=== PATIENT | male | born 1960 | race African-American/Black ===

== ENCOUNTER 2017-08-17 01:58 | Inpatient (IN) | payer OTHER, MEDICARE ==
[~2017-08-17] VITALS: Ht 193 cm; Wt 157.0 kg
--- NOTE | 2017-08-17 02:05 | ED DYSPNEA/ASTHMA COMPLAINT ---
History of Present Illness General Chief Complaint: Dyspnea (COPD, CHF, Other) Stated Complaint: BIBA FOR SOB Source: patient, EMS Exam Limitations: no limitations Vital Signs & Intake/Output Vital Signs & Intake/Output Vital Signs Date Time Temp Pulse Resp B/P B/P Pulse O2 O2 Flow FiO2 Mean Ox Delivery Rate 08/17 0958 98.6 90 20 160/72 98 Nasal 2.0L Cannula 08/17 0647 98.7 94 18 157/75 98 08/17 0227 100 Nasal Cannula 08/17 0210 98.7 95 22 155/92 100 Non 10L ReBreather Allergies Coded Allergies: metformin (Mild, DIARREHA 08/17/17) glyburide (HYPOGLYCEMIA 08/17/17) Triage Nurses Notes Reviewed? yes Onset: Gradual Duration: hour(s): Timing: recent history Severity: moderate Activities at Onset: none Prior Episodes/Possible Cause: frequent episodes Modifying Factors: Improves With: rest. Associated Symptoms: dyspnea HPI: 56 YO gentleman h/o esrd on hemodialysis, Sat/Thu/ presents with shortness of breath and dyspnea. He shares that he was unable to complete his dialysis on Thursday, completing only 1.5 hours. Tonight, he developed shortness of breath, worse when he lay flat. 911 called. He had an 02 sat 88%. He was given nitro x 4, supplemental 02, with improvement in his symptoms. He shares that, "they always pick me up late on Thursday and that's why I can't get enough dialysis." He notes that he usually goes to [facility], "where they don't draw blood in the ER... .they just send me to dialysis." He denies fever, chills, phlegm, chest pain, wheezing. (Kate VALLADARES,Puma Fernández) Reconcile Medications Calcium Acetate 667 MG CAPSULE 1 CAP PO WM RENAL (Reported) Duloxetine Hydrochloride (Cymbalta) 30 MG CAPSULE.DR 1 CAP PO DAILY PAIN ( Reported) Gabapentin 100 MG CAPSULE 2 CAP PO QHS NEUROPATHY (Reported) Labetalol HCl 100 MG TABLET 1 TAB PO BID HTN (Reported) Tamsulosin HCl (Flomax) 0.4 MG CAP.ER.24H 1 CAP PO DAILY HTN (Reported) (Ila VALLADARES,Yoshi) Past History Travel History Traveled to [place] past 21 day No Medical History Any Pertinent Medical History? see below for history Cardiovascular: hypertension Renal: esrd on hemodialysis Surgical History Surgical History: none Family History Hx Contributory? No (Kate VALLADARES,Puma Fernández) Review of Systems Review of Systems Constitutional: Reports: no symptoms. EENTM: Reports: no symptoms. Respiratory: Reports: no symptoms. Cardiovascular: Reports: no symptoms. GI: Reports: no symptoms. Genitourinary: Reports: no symptoms. Musculoskeletal: Reports: no symptoms. Skin: Reports: no symptoms. Neurological/Psychological: Reports: no symptoms. Hematologic/Endocrine: Reports: no symptoms. Immunologic/Allergic: Reports: no symptoms. All Other Systems: Reviewed and Negative (Kate VALLADARES,Puma Fernández) Physical Exam Physical Exam General Appearance: well developed/nourished, mild distress Head: atraumatic, normal appearance Eyes: Bilateral: normal appearance, PERRL, EOMI. Ears, Nose, Throat: normal pharynx, normal ENT inspection Neck: normal inspection, supple, full range of motion, JVD Respiratory: diminished breath sounds bilaterally, diffuse 2+ edema in lower extremities. Cardiovascular: regular rate/rhythm Gastrointestinal: normal bowel sounds, soft, non-tender, no organomegaly Extremities: normal inspection, normal capillary refill, normal range of motion, 2-3+ symmetrical edema w/ chronic venous stasis changes. Neurologic/Psych: no motor/sensory deficits, awake, alert, oriented x 3 Skin: intact, normal color, warm/dry Core Measures ACS in differential dx? No CVA/TIA Diagnosis No Sepsis Present: No Sepsis Focused Exam Completed? No (Kate VALLADARES,Puma Fernández) Physical Exam Peripheral Pulses: 4+ carotid (R), 4+ carotid (L) (Yoshi Thorpe MD) Progress Differential Diagnosis: asthma, bronchitis, CHF, COPD Plan of Care: Orders Procedure Date/time Status Renal Dialysis Diet 08/17 L Active Renal Dialysis Diet 08/17 B Complete Pathway - chart 08/17 0851 Active House Staff 08/17 0851 Active Patient Data 08/17 0818 Active OXYGEN SETUP (GEN) 08/17 0801 Active Saline Lock 08/17 0801 Active Admit to inpatient 08/17 0801 Active Vital Signs 08/17 0801 Active Activity/Ambulation 08/17 0801 Active Code Status 08/17 0801 Active PHOSPHORUS 08/17 0539 Complete TROPONIN LEVEL 08/17 205 Complete PARTIAL THROMBOPLASTIN TIME 08/17 205 Complete PROTHROMBIN TIME 08/17 205 Complete COMPREHENSIVE METABOLIC PANEL 08/17 205 Complete CBC WITHOUT DIFFERENTIAL 08/17 205 Complete B-TYPE NATRIURETIC PEP (BNP) 08/17 205 Complete EKG 08/17 205 Active Intake & Output 08/17 201 Active Lab Add-on Test 08/17 UNK Active VTE Mechanical Prophylaxis 08/17 UNK Active FingerStick- Glucose 08/17 UNK Active EKG 08/17 UNK Active Current Medications Sig/Chapis Start time Last Medication Dose Stop Time Status Admin Insulin Aspart 0 TIDAC 08/17 1200 AC (NovoLOG) Laboratory Tests 08/17/17 0539: Anion Gap 16, Estimated GFR 7 L, BUN/Creatinine Ratio 7.0, Glucose 133 H, Calcium 7.4 L, Phosphorus 6.0 H, Total Bilirubin 0.5, AST 20, ALT 42, Alkaline Phosphatase 67, Troponin I 0.06, Fbc-S-Krcttcujmiq Pept 63758 H, Total Protein 7.0, Albumin 3.6, Globulin 3.4, Albumin/Globulin Ratio 1.1, PT 11.4, INR 1.09, APTT 27, CBC w Diff NO MAN DIFF REQ, RBC 2.62 L, MCV 96.9 H, MCH 30.7, RDW 15.2 H, MPV 8.0, Gran % 68.4, Lymphocytes % 18.9 L, Monocytes % 8.4, Eosinophils % 4.1, Basophils % 0.2, Absolute Granulocytes 7.4 H, Absolute Lymphocytes 2.0, Absolute Monocytes 0.9 H, Absolute Eosinophils 0.4, Absolute Basophils 0, PUBS MCHC 31.7 L Diagnostic Imaging: Viewed by Me: Radiology Read. CXR Impression: no acute abnormality, no infiltrates, normal size heart, normal mediastinum, PATIENT: DEWEY WAYNE JR PRESENT AGE: 56 PATIENT ACCOUNT NO: [id number] : 58 LOCATION: [facility] ORDERING PHYSICIAN: Puma Love MD SERVICE DATE: 08/17/17 EXAM TYPE: RAD - XRY-PORTABLE CHEST XRAY EXAMINATION: XR PORTABLE CHEST CLINICAL INFORMATION: Dyspnea, hypoxia COMPARISON: 07/29/2016 TECHNIQUE: Portable frontal view of the chest was obtained. FINDINGS: Lung volumes are symmetric. No focal consolidation is seen. No evidence of pneumothorax, significant pleural effusion , or overt pulmonary edema. The cardiac silhouette remains enlarged. No acute osseous findings are seen. IMPRESSION: Enlarged cardiac silhouette, similar to prior. No acute pulmonary findings. DICTATED BY: William Jones MD DATE/TIME DICTATED:08/17/17310 STULL HEWER:LONG DATE/TIME TRANSCRIBED:310 CONFIDENTIAL, DO NOT COPY WITHOUT APPROPRIATE AUTHORIZATION. < Electronically signed in Other Vendor System> SIGNED BY: William Jones MD 08/17/17314 Initial ED EKG: lbbb, no acute change Hand-Off Endorsed To: Yoshi Thorpe MD Endorsed Time: 0700 Pending: other (AWAITING ATTENDING CALL) (Kate VALLADARES,Puma Fernández) Departure Departure Disposition: STILL A PATIENT Condition: Stable Clinical Impression Primary Impression: Volume overload Secondary Impressions: ESRD (end stage renal disease) Departure Forms: Customer Survey General Discharge Information Comments 08/17/17, 4:29am... unable to acheive access or adequate blood specimens after multiple attempts from multiple experienced nurses. pt declines further attempts. 08/17/17, 4:48... discussed with dr. monteiro, nephrology, who knows the patient well. Apparently, this is a recurrent issue. He will have dr. ham evaluate the patient later today. 08/17/17, 5:40AM... iv access obtained in left hand. femoral stick accomplished under u/s guidance. labs sent. (Puma Love MD) Admission Note Spoke With: Dewey Valdez MD Documentation of Exam: Documentation of any treatments & extenuating circumstances including Concerns Regarding Discharge (functional status, medication knowledge or non-compliance, living conditions, etc.) that warrant an admission rather than observation: Dialysis renal evaluation supplemental oxygen medication adjustment continuing care discharge planning (Yoshi Thorpe MD) Critical Care Note Critical Care Note Critical Care Time: non-applicable (Puma Love MD)
--- NOTE | 2017-08-17 03:15 | RADIOLOGY REPORT ---
EXAMINATION: XR PORTABLE CHEST CLINICAL INFORMATION: Dyspnea, hypoxia COMPARISON: 07/29/2016 TECHNIQUE: Portable frontal view of the chest was obtained. FINDINGS: Lung volumes are symmetric. No focal consolidation is seen. No evidence of pneumothorax, significant pleural effusion, or overt pulmonary edema. The cardiac silhouette remains enlarged. No acute osseous findings are seen. IMPRESSION: Enlarged cardiac silhouette, similar to prior. No acute pulmonary findings.
[2017-08-17 06:01] LABS: ABSOLUTE BASOPHIL COUNT 0 /CUMM (0.0-0.2); ABSOLUTE EOSINOPHIL COUNT 0.4 /CUMM (0.0-0.7); ABSOLUTE GRANULOCYTE CT 7.4 /CUMM (1.4-6.5); ABSOLUTE MONOCYTE COUNT 0.9 /CUMM (0.10-0.60); BASOPHIL % 0.2 % (0.0-2.0); EOSINOPHIL % 4.1 % (0-5); GRANULOCYTE % 68.4 % (42.2-75.2); HEMATOCRIT 25.4 % (42-52); MEAN CORPUSCULAR HGB 30.7 PG (27.0-31.0); MEAN CORPUSCULAR HGB CONC 31.7 G/DL (33.0-37.0); MEAN CORPUSCULAR VOLUME 96.9 FL (80.0-94.0); PLATELET COUNT 241 /CUMM (130-400); RBC DISTRIBUTION WIDTH 15.2 % (11.5-14.5); RED BLOOD CELL CT 2.62 /CUMM (4.70-6.10); WHITE BLOOD CELL COUNT 10.9 /CUMM (4.8-10.8)
[2017-08-17 06:04] LABS: PT 11.4 SEC (9.4-12.5); PTT 27 SEC (25-37)
--- NOTE | 2017-08-17 08:22 | History & Physical ---
Raman VALLADARES,[facility] 08/17/17 0821: General Information and HPI Statement: I have seen and personally examined TAWANNA WAYNE JR and documented this H& P. The patient is a 56 year old M who presented with a patient stated chief complaint of shortness of breath. Exam Limitations: no limitations History of Present Illness: This is a 56-year-old gentleman with a past medical history of diabetes, hypertension, CVA in 2016, ESRD (dialysis Thu, and Thursday at [facility]), is BIBA for evaluation of shortness of breath. Patient reports that last night he was awoken from sleep by significant shortness of breath and was not able to lay flat on his back. He decided to activate EMS, was on file show that patient was administered 4 tablets of sublingual nitroglycerin and put on nonrebreather by the EMS service prior to being presented at [facility]. Of note patient reports that his last dialysis session on Thursday only lasted 1 hour instead of the normal 3-4 hrs. Patient claims that he is having problems with his transportation services who are always late late and therefore his dialysis sessions have recently been cut short(??). Patient states that he has been hospitalized about 4-5 times this month at [facility] due to the same symptoms of shortness of breath 2/2 to inadequate dialysis and every time during hospitalization he received dialysis. He denies any fever, chills, chest pain, palpitation, altered mental status, focal neurological deficit, or joint pains. Patient has a right arm AV fistula and has been on dialysis since 2010 which he receives at [facility]. When seen earlier today in the morning by house staff, patient reported significant improvement in his breathing, and was on 4 L nasal cannula. Past History Travel History Traveled to [place] past 21 day No Medical History Neurological: STROKE 2017 Cardiovascular: hypertension Renal: esrd on hemodialysis Endocrine: diabetes Surgical History Surgical History: none Review of Systems Review of Systems Constitutional: Reports: no symptoms, see HPI. EENTM: Reports: no symptoms. Cardiovascular: Reports: no symptoms. Respiratory: Reports: see HPI. GI: Reports: no symptoms. Genitourinary: Reports: no symptoms. Musculoskeletal: Reports: no symptoms. Skin: Reports: no symptoms. Neurological/Psychological: Reports: no symptoms. Hematologic/Endocrine: Reports: no symptoms. Immunologic/Allergic: Reports: no symptoms. All Other Systems: Reviewed and Negative Exam & Diagnostic Data Last 24 Hrs of Vital Signs/I&O Vital Signs Date Time Temp Pulse Resp B/P B/P Pulse O2 O2 Flow FiO2 Mean Ox Delivery Rate 08/17 0647 98.7 94 18 157/75 98 08/17 0227 100 Nasal Cannula 08/17 0210 98.7 95 22 155/92 100 Non 10L ReBreather Intake & Output 08/17 1600 08/17 0800 08/17 0000 Intake Total Output Total Balance Patient 158.757 kg Weight Physical Exam General Appearance Alert, Oriented X3, Cooperative Skin venous changes with some compromise of skin intergrtiy noted in lower extremities b/l Skin Temp/Moisture Exam: Warm/Dry HEENT Atraumatic, Mucous Membr. moist/pink Neck No JVD Lymphatic Cervical nl Cardiovascular Regular Rate, Normal S1, Normal S2 Lungs crackles b/l Abdomen Normal Bowel Sounds, Soft, No Tenderness Neurological Normal Speech, Strength at 5/5 X4 Ext, Normal Tone, Sensation Intact, Cranial Nerves 3-12 NL, Reflexes 2+ Extremities +2 edema b/l, av fistula present on right arm with a palpable thrill Vascular Pulses Symmetrical Assessment/Plan Assessment: This is a 56-year-old gentleman with a history of diabetes, hypertension, end- stage renal dialysis with possible noncompliance with dialysis sessions presents with symptoms of acute shortness of breath in the setting of suboptimal dialysis sessions. Impression * Dyspnea. Likely secondary to increased fluid overload in the setting of suboptimal dialysis session due to transportation logistic issues. No infectious etiology suspected, pt is afebrile, unremarkable chest x-ray and no leukocytosis. No chest pain or exertional dyspnea is reported which makes cardiac etiology unlikely. * History of chronic diseases: End-stage renal disease on dialysis, diabetes, CVA 2016, hypertension, and anemia. Plan * Admitted to general medicine floor * Continue O2 supplementation to keep sats above and 92% * Closely monitor respiratory status, patient most likely require dialysis session today as he is a high risk for pulmonary edema, will defer decision to nephro * Nephrology is on board and will follow their recommendation * Continue renal medication of PhosLo * NovoLog sliding scale and Levemir * Accu-Chek 3 times a day and at bedtime * For now will hold off on BP meds and if patient is to not receive dialysis today then will restart Bp med .Currently is totally blood pressure is 150. * Renal dialysis diet * CODE STATUS: Full code As Ranked By This Provider Problem List: 1. Volume overload 2. Dyspnea Core Measures/Misc (04/12) Acute Coronary Syndrome ACS Diagnosis: No Congestive Heart Failure Congestive Heart Failure Diagnosis No Cerebrovascular Accident CVA/TIA Diagnosis: No VTE (View Protocol) VTE Risk Factors Acute Medical Illness No Mechanical VTE Prophylaxis d/t N/A MechProphylax Ordered No VTE Pharm Prophylaxis d/t NA PharmProphylax ordered Sepsis (View protocol) Sepsis Present: No Munir VALLADARES,Ana Maria 08/17/17 1122: General Information and HPI Allergies/Medications Allergies: Coded Allergies: metformin (Mild, DIARREHA 08/17/17) Sulfa (Sulfonamide Antibiotics) (UNKNOWN 08/18/17) PER DIALYSIS ORDER SHEET OF 08/18/17 (SJS) amphetamine (From ADDERALL) (UNKNOWN 08/18/17) PER DIALYSIS ORDER SHEET OF 08/18/17 (SJS) dextroamphetamine (From ADDERALL) (UNKNOWN 08/18/17) PER DIALYSIS ORDER SHEET OF 08/18/17 (SJS) glyburide (HYPOGLYCEMIA 08/17/17) shellfish derived (UNKNOWN 08/18/17) PER DIALYSIS ORDER SHEET OF 08/18/17 (SJS) SHELLFISH Home Med list Aspirin (Aspirin*) 325 MG TABLET 1 TAB PO DAILY STROKE (Reported) Atorvastatin Calcium 20 MG TABLET 1 TAB PO DAILY CHOLESTEROL (Reported) Calcium Acetate 667 MG CAPSULE 1 CAP PO WM RENAL (Reported) Duloxetine Hydrochloride (Cymbalta) 30 MG CAPSULE.DR 1 CAP PO DAILY PAIN ( Reported) Gabapentin 100 MG CAPSULE 2 CAP PO QHS NEUROPATHY (Reported) Insulin-Lantus (Lantus) 100 UNIT/ML VIAL 42 UNITS SC QHS DIABETES (Reported) Labetalol HCl 100 MG TABLET 1 TAB PO BID HTN (Reported) Midodrine HCl 10 MG TABLET 1 TAB PO SEE ADMIN CRITERIA DIALYSIS (Reported) 1 TABLET BEFORE DIALYSIS SESSION Olanzapine (Zyprexa) 2.5 MG TABLET 1 TAB PO DAILY MOOD (Reported) Tamsulosin HCl (Flomax) 0.4 MG CAP.ER.24H 1 CAP PO DAILY HTN (Reported) Vit B Cmplx 3/FA/Vit C/Biotin (Nephro-Ashley Rx Tablet) 1 MG-60 MG-300 MCG TABLET 1 TAB PO DAILY DIALYSIS (Reported) Attending MD Review Statement Attending Statement Attending MD Statement: examined this patient, discuss w/resident/PA/SPECIAL FORCES SPECIALIST, agreed w/resident/PA/[employer] FOR[employer] SPECIALIST, reviewed EMR data (avail), discussed with nursing, discussed with case mgmt, reviewed images, amended to note Attending Assessment/Plan: 56 y/o M with pmh sig for diabetes, hypertension, CVA in 2016, ESRD (dialysis Thu, and Thursday), presented with acute shortness of breath that started last night. Patient claims that his transportation company is creating some problem in picking him up on time on Saturdays. They became up very late and he only goes for a very brief. Of dialysis. This time they did not look out enough fluid on him on Thursday did the dialysis session because it was late. This has been a recurrent problem and he ends up in the hospital because of shortness of breath and fluid overload. This time same thing happened, patient otherwise denies any chest pain, fevers or chills. He denies any coughing. He is just feeling cold and tired. While I was interviewing the patient, reuse technician Dr. Sandie Lofton confirms the fact that this transportation company is creating some problems. Patient himself did mention that he gained 4-5 KG is between dialysis which is a lot for him and his recommended weight came between dialysis only 2-3 KGs. Vital Signs Date Time Temp Pulse Resp B/P B/P Pulse O2 O2 Flow FiO2 Mean Ox Delivery Rate 08/17 0958 98.6 90 20 160/72 98 Nasal 2.0L Cannula 08/17 0647 98.7 94 18 157/75 98 08/17 0227 100 Nasal Cannula 08/17 0210 98.7 95 22 155/92 100 Non 10L ReBreather on exam; aox3, nad. obese. cv; s1,s2 rrr resp; decreased bs overall. abd; soft, nt, bs+ ext; 2+ edema b/l Laboratory Tests 08/17 0539 Chemistry Sodium (137 - 145 mmol/L) 139 Potassium (3.5 - 5.1 mmol/L) 4.7 Chloride (98 - 107 mmol/L) 104 Carbon Dioxide (22 - 30 mmol/L) 19 L Anion Gap (5 - 16) 16 BUN (9 - 20 mg/dL) 59 H Creatinine (0.7 - 1.2 mg/dL) 8.4 *H Estimated GFR (>60 ml/min) 7 L BUN/Creatinine Ratio (7 - 25 %) 7.0 Glucose (65 - 99 mg/dL) 133 H Calcium (8.4 - 10.2 mg/dL) 7.4 L Phosphorus (2.5 - 4.5 mg/dL) 6.0 H Total Bilirubin (0.2 - 1.3 mg/dL) 0.5 AST (17 - 59 U/L) 20 ALT (21 - 72 U/L) 42 Alkaline Phosphatase (< 127 U/L) 67 Troponin I (<0.11 ng/ml) 0.06 Flz-C-Nuakvocortq Pept (<125 pg/mL) 02393 H Total Protein (6.3 - 8.2 g/dL) 7.0 Albumin (3.5 - 5.0 g/dL) 3.6 Globulin (1.9 - 4.2 gm/dL) 3.4 Albumin/Globulin Ratio (1.1 - 2.2 %) 1.1 Coagulation PT (9.4 - 12.5 SEC) 11.4 INR (0.90 - 1.17) 1.09 APTT (25 - 37 SEC) 27 Hematology CBC w Diff NO MAN DIFF REQ WBC (4.8 - 10.8 /CUMM) 10.9 H RBC (4.70 - 6.10 /CUMM) 2.62 L Hgb (14.0 - 18.0 G/DL) 8.0 L Hct (42 - 52 %) 25.4 L MCV (80.0 - 94.0 FL) 96.9 H MCH (27.0 - 31.0 PG) 30.7 RDW (11.5 - 14.5 %) 15.2 H Plt Count (130 - 400 /CUMM) 241 MPV (7.4 - 10.4 FL) 8.0 Gran % (42.2 - 75.2 %) 68.4 Lymphocytes % (20.5 - 51.1 %) 18.9 L Monocytes % (1.7 - 9.3 %) 8.4 Eosinophils % (0 - 5 %) 4.1 Basophils % (0.0 - 2.0 %) 0.2 Absolute Granulocytes (1.4 - 6.5 /CUMM) 7.4 H Absolute Lymphocytes (1.2 - 3.4 /CUMM) 2.0 Absolute Monocytes (0.10 - 0.60 /CUMM) 0.9 H Absolute Eosinophils (0.0 - 0.7 /CUMM) 0.4 Absolute Basophils (0.0 - 0.2 /CUMM) 0 PUBS MCHC (33.0 - 37.0 G/DL) 31.7 L EKG: LBBB. No previous EKG available. A/P; 56 y/o M with pmh sig for diabetes, hypertension, CVA in 2016, ESRD ( dialysis Thu, and Thursday), admitted with shortness of breath secondary to fluid overload due to incomplete dialysis session. Patient has been seen by reuse technician Dr. Hooper and needs dialysis today. Was not mentioned that they have contacted state to report about this new transportation company. We'll continue the rest of his home medications. Patient has a history of diabetes and he should be continued on his insulin with Accu-Cheks. DVT px: Heparin subcutaneous and patient is a full code.
[2017-08-17] MEDS ORDERED: CYMBALTA30 M1 PO (10:41)
[2017-08-17] MEDS ORDERED: LABETALOL HCL100 M1 PO (10:42)
[2017-08-17] MEDS ORDERED: FLOMAX0.4 M1 PO (10:43)
[2017-08-17] MEDS ORDERED: CALCIUM ACETAT667 M3 PO (10:45)
[2017-08-17] MEDS ORDERED: GABAPENTIN100 M2 PO (10:46)
[2017-08-17] MEDS ORDERED: MIDODRINE HCL10 M1 PO (10:48)
[2017-08-17] MEDS ORDERED: NEPHRO-VITE RX1 EACH PO (10:50)
[2017-08-17] MEDS ORDERED: ASPIRIN325 M2 PO (10:51)
[2017-08-17] MEDS ORDERED: LANTUS100 UNIT/1 SC (10:52)
[2017-08-17] MEDS ORDERED: ATORVASTATIN CA20 M1 PO (10:53)
[2017-08-17] MEDS ORDERED: ZYPREXA2.5 M1 PO (10:53)
--- NOTE | 2017-08-17 11:22 | Admission Certification ---
Admission Certification Certification Statement - As attending physician, I certify that at the time of - admission, based on clinical presentation, severity of - symptoms, need for further diagnostic testing and - therapeutic interventions, and risk of adverse outcomes - without in-hospital treatment, in my clinical assessment, - this patient requires an acute hospital stay for a minimum - of two nights or longer. I have also considered psychsocial - factors such as support system, advanced age, financial - issues, cognitive issues, and failed out-patient treatments, - past re-admission history, safety of patient, and lack of - compliance as applicable. Specific rationale supporting this admission is: Patient admitted with acute shortness of breath fluid overload, needs urgent dialysis.
--- NOTE | 2017-08-17 15:27 | Patient Discharge Instructions ---
Discharge Instructions General Discharge Information You were seen/treated for: Fluid overload due to end-stage renal disease on dialysis Acute on chronic respiratory failure due to underlying fluid overload Special Instructions: Please follow-up with your primary care physician in one week of discharge Please continue dialysis on scheduled days. Please follow-up with nephrology in 1-2 weeks of discharge Diet Recommended Diet: Renal Dialysis Activity Other activity limits: As tolerated Acute Coronary Syndrome Inclusion Criteria At DC or during hospital stay patient has or had the following: ACS DIAGNOSIS No Discharge Core Measures Meds if any: Prescribed or Continued at Discharge Meds if any: NOT Prescribed or Continued at Discharge Congestive Heart Failure Inclusion Criteria At DC or during hospital stay patient has or had the following: CHF DIAGNOSIS No Discharge Core Measures Meds if any: Prescribed or Continued at Discharge Meds if any: NOT Prescribed or Continued at Discharge Cerebrovascular accident Inclusion Criteria At DC or during hospital stay patient has or had the following: CVA/TIA Diagnosis No Discharge Core Measures Meds if any: Prescribed or Continued at Discharge Meds if any: NOT Prescribed or Continued at Discharge Venous thromboembolism Inclusion Criteria VTE Diagnosis No VTE Type NONE VTE Confirmed by (Test) NONE Discharge Core Measures - Per Current guidelines, there needs to be overlap - treatment for the first 5 days of Warfarin therapy. - If discharged on Warfarin prior to 5 days of - overlap therapy, the patient will need to be - assessed for post discharge needs including - *Post discharge parental anticoagulation - *Warfarin and/or parental anticoagulation education - *Follow up date to check INR post discharge At least 5 days overlap therapy as Inpatient No Meds if any: Prescribed or Continued at Discharge Note: Overlap Therapy is Warfarin and Anticoagulant Meds if any: NOT Prescribed or Continued at Discharge
[2017-08-17 17:12] VITALS: BP 156/87
--- NOTE | 2017-08-17 18:19 | Cons- Nephrology ---
General Information and HPI Consulting Request Date of Consult: 08/17/17 Requested By: Munir VALLADARES,Ana Maria Source of Information: patient, old records Exam Limitations: no limitations History of Present Illness: 56yo man with h/o ESRD secondary to DM, on TIW HD support in [place] who just moved to this [facility], transferring his dialysis care to [facility]. He has been having difficulty with his transportation arrangements and as a consequence has been getting to dialysis quite late, primarily on Saturdays (he is dialyzed T- -Thu) therby resulting in shortened treatments. He also tends to gain too much weight in between his treatments and as a result has had several hospital admissions (usually in [place]) for fluid overload with sob. He now comes in short of breath having received only 170 minutes of dialysis this past Thursday (08/15) instead of his prescribed 255 minutes. 3.3kg of fluid were removed that day but he still left the dialysis unit weighing 163.1kg - 4.1 kg above his EDW of 159 kg. No chest pain, cough or fever. CXR shows primarily cardiomegaly. PMH positive for DM, ESRD since 2010 initially on PD then HD, HTN, NHL, neuropathy, bipolar disorder, Charcot foot reconstruction 2012, morbid obesity, depression with h/o prior suicide attempt. Meds: see below Allergies: Sulfa, glyburide, metformin, aderall, shellfish Family history: Father with CKD and diabetes mellitus, mother with GA and diabetes mellitus. One brother with hypertension. One daughter in good health. Social history: . Unemployed. No drug or alcohol use. Has a history of incarceration. Allergies/Medications Allergies: Coded Allergies: metformin (Mild, DIARREHA 08/17/17) Sulfa (Sulfonamide Antibiotics) (UNKNOWN 08/18/17) PER DIALYSIS ORDER SHEET OF 08/18/17 (SJS) amphetamine (From ADDERALL) (UNKNOWN 08/18/17) PER DIALYSIS ORDER SHEET OF 08/18/17 (SJS) dextroamphetamine (From ADDERALL) (UNKNOWN 08/18/17) PER DIALYSIS ORDER SHEET OF 08/18/17 (SJS) glyburide (HYPOGLYCEMIA 08/17/17) shellfish derived (UNKNOWN 08/18/17) PER DIALYSIS ORDER SHEET OF 08/18/17 (SJS) SHELLFISH Home Med List: Aspirin (Aspirin*) 325 MG TABLET 1 TAB PO DAILY STROKE (Reported) Atorvastatin Calcium 20 MG TABLET 1 TAB PO DAILY CHOLESTEROL (Reported) Calcium Acetate 667 MG CAPSULE 1 CAP PO WM RENAL (Reported) Duloxetine Hydrochloride (Cymbalta) 30 MG CAPSULE.DR 1 CAP PO DAILY PAIN ( Reported) Gabapentin 100 MG CAPSULE 2 CAP PO QHS NEUROPATHY (Reported) Insulin-Lantus (Lantus) 100 UNIT/ML VIAL 42 UNITS SC QHS DIABETES (Reported) Labetalol HCl 100 MG TABLET 1 TAB PO BID HTN (Reported) Midodrine HCl 10 MG TABLET 1 TAB PO SEE ADMIN CRITERIA DIALYSIS (Reported) 1 TABLET BEFORE DIALYSIS SESSION Olanzapine (Zyprexa) 2.5 MG TABLET 1 TAB PO DAILY MOOD (Reported) Tamsulosin HCl (Flomax) 0.4 MG CAP.ER.24H 1 CAP PO DAILY HTN (Reported) Vit B Cmplx 3/FA/Vit C/Biotin (Nephro-Ashley Rx Tablet) 1 MG-60 MG-300 MCG TABLET 1 TAB PO DAILY DIALYSIS (Reported) Review of Systems Review of Systems: Review of Systems Constitutional: Reports: no symptoms, see HPI. EENTM: Reports: no symptoms. Cardiovascular: Reports: no symptoms. Respiratory: Reports: see HPI. GI: Reports: no symptoms. Genitourinary: Reports: no symptoms. Musculoskeletal: Reports: no symptoms. Skin: Reports: no symptoms. Neurological/Psychological: Reports: no symptoms. Hematologic/Endocrine: Reports: no symptoms. Immunologic/Allergic: Reports: no symptoms. 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 Home Services at Home: Home Health Aide, Nursing, Occupational Therapy, Physical Therapy Smoking Status: Never Smoked Exam & Diagnostic Data Vital Signs and I&O Vital Signs Date Time Temp Pulse Resp B/P B/P Pulse O2 O2 Flow FiO2 Mean Ox Delivery Rate 08/18 1050 78 230/86 08/18 0729 22 93 Room Air 08/18 0715 93 Room Air 08/18 0522 97.4 92 22 150/68 96 Room Air 08/17 2234 92 152/92 08/17 2134 92 167/97 08/17 2128 98.4 92 20 167/97 100 Nasal 3.0L Cannula 08/17 1712 96.4 91 20 156/87 100 Nasal 3.0L Cannula 08/17 1633 Nasal 3.0L Cannula 08/17 1141 98.6 90 20 160/72 Intake & Output 08/18 1600 08/18 0400 08/17 1600 08/17 0400 08/16 1600 08/16 0400 Intake Total 180 600 Output Total Balance 180 600 Intake, Oral 180 600 Number 0 Bowel Movements Patient 357 lb 357 lb 350 lb Weight Weight Bed scale Measurement Method Physical Exam: General: Well-developed, obese -Welsh male in no acute distress Skin: No rash or jaundice HEENT: Conjunctivae pink, sclerae anicteric, mucous membranes moist Neck: Without masses or thyromegaly, no supraclavicular or cervical adenopathy Chest: Diminished breath sounds at bases Heart: Regular rate and rhythm without S3 or rub Abdomen: Obese, soft and nontender without palpable masses or organomegaly Extremities: Without cyanosis; trace edema Neuro: No focal findings, no asterixis or myoclonus Assessment/Plan Assessment/Recommendations Assessment: 56-year-old man with dialysis-dependent end-stage renal disease who for a variety of reasons (see above) has had shortened dialysis treatments and excessive intradialytic weight gains who now comes in with shortness of breath and volume overload. He is approximately 4 kg above his estimated dry weight. There is no evidence of a cardiac event. Recommendations: 1. We will proceed with dialysis today and attempt to remove approximately 4 L of fluid over 2.5-3 hours as tolerated 2. Hemodialysis again tomorrow (his regular schedule) 3. Barring any new issues or complications, can probably be discharged after dialysis tomorrow. Thank you. We will follow along with you.
[2017-08-17 21:28] VITALS: BP 167/97
[2017-08-17 22:34] VITALS: BP 152/92
--- NOTE | 2017-08-18 05:19 | Event Note ---
Event Note Event Note: Patient wanted to leave AMA. Extensively counseled, agreed to stay refused to wear hospital gown. Wants minimal disturbance overnight. States that he will leave the hospital in the morning. Currently asymptomatic VS within normal range offers no complaints
[2017-08-18 05:22] VITALS: BP 150/68
--- NOTE | 2017-08-18 08:13 | PN- Housestaff ---
Subjective Follow-up For: End-stage renal disease on dialysis Volume overload Complaints: no complaints Subjective: patient was seen and examined while he was getting his dialysis. He remained hemodynamically stable. His blood pressure was running slightly on the higher side but came back normal with his regular medications. We will send him home today. Review of Systems Constitutional: Denies: diaphoresis, fever. Cardiovascular: Denies: chest pain, orthopena. Respiratory: Denies: cough, orthopnea. Gastrointestinal: Denies: bloating, constipation. Genitourinary: Denies: hematuria, hesitation. Musculoskeletal: Denies: back pain, joint pain. Objective Last 24 Hrs of Vital Signs/I&O Vital Signs Date Time Temp Pulse Resp B/P B/P Pulse O2 O2 Flow FiO2 Mean Ox Delivery Rate 08/18 1238 97.9 80 20 150/78 94 Room Air 08/18 1050 78 230/86 08/18 0729 22 93 Room Air 08/18 0715 93 Room Air 08/18 0522 97.4 92 22 150/68 96 Room Air 08/17 2234 92 152/92 08/17 2134 92 167/97 08/17 2128 98.4 92 20 167/97 100 Nasal 3.0L Cannula Intake & Output 08/18 1600 08/18 0800 08/18 0000 Intake Total 910 180 600 Output Total 0 Balance 910 180 600 Intake, IV 10 Intake, Oral 900 180 600 Number 0 0 Bowel Movements Output, Urine 0 Patient 346 lb 357 lb 357 lb Weight Weight Bed scale Bed scale Measurement Method Physical Exam General Appearance: Alert, Oriented X3, Cooperative, No Acute Distress Cardiovascular: Regular Rate, Normal S1, Normal S2, No Murmurs Lungs: Normal Air Movement Abdomen: Soft, No Tenderness Current Medications: Current Medications Sig/Chapis Start time Last Medication Dose Route Stop Time Status Admin Aspirin 325 MG DAILY 08/18 1000 DCD 08/18 PO 1253 Atorvastatin Calcium 20 MG 2200 08/18 2200 DCD PO Atorvastatin Calcium 20 MG DAILY 08/18 1000 DC PO Calcium Acetate 667 MG WM 08/17 1200 DCD 08/18 PO 1252 Duloxetine HCl 30 MG DAILY 08/17 1054 DCD 08/18 PO 1254 Epoetin Jaime 3,000 UNIT ONCE PRN 08/18 0745 DCD IV Gabapentin 200 MG AT BEDTIME 08/17 2200 DCD 08/17 PO 2159 Heparin Sodium 5,000 UNIT Q8 08/18 1045 DCD (Porcine) SC Insulin Aspart 0 TIDAC 08/17 1200 DCD 08/17 SC 1246 Labetalol HCl 100 MG BID 08/17 1055 DCD 08/18 PO 1050 Midodrine 10 MG TUES THURS SAT 08/18 1000 DCD PO Multivitamins 1 TAB DAILY 08/17 1058 DCD 08/18 PO 1253 Olanzapine 2.5 MG 1800 08/18 1800 DCD PO Olanzapine 2.5 MG DAILY 08/18 1000 DC PO Tamsulosin HCl 0.4 MG 2200 08/18 2200 DCD PO Tamsulosin HCl 0.4 MG DAILY 08/18 1000 DC PO Last 24 Hrs of Lab/[place] Results Last 24 Hrs of Labs/Mics: Laboratory Tests 08/18/17 0745: Anion Gap 15, Estimated GFR 8 L, BUN/Creatinine Ratio 6.5 L, Phosphorus 5.8 H , CBC w Diff NO MAN DIFF REQ, RBC 2.44 L, MCV 96.6 H, MCH 31.6 H, RDW 14.7 H , MPV 8.1, Gran % 64.4, Lymphocytes % 20.9, Monocytes % 10.3 H, Eosinophils % 3.9, Basophils % 0.5, Absolute Granulocytes 5.0, Absolute Lymphocytes 1.6, Absolute Monocytes 0.8 H, Absolute Eosinophils 0.3, Absolute Basophils 0, PUBS MCHC 32.7 L Assessment/Plan Assessment: Morbidly obese -Austrian male with history of diabetes, hypertension, end -stage renal disease on dialysis came in with worsening shortness of breath and found to have less hours of dialysis than scheduled lately. Patient was admitted on telemetry floor and will address following problems Problem list 1. End-stage renal disease on dialysis 2. Hypertension 3. Diabetes 4. Dyspnea most likely due to fluid overload in the setting of sup optimal dialysis sessions Plan 1. Vision had his dialysis session yesterday and again he had 4 hours of dialysis and 2 L of fluid was taken out. He remained hemodynamically stable and will be discharged home on his home medications and with instruction to follow up with nephrology as outpatient. Problem List: 1. ESRD (end stage renal disease) Pain Ratin Pain Location: Not applicable Pain Goal: Remain pain free Pain Plan: Tylenol Tomorrow's Labs & Rationales: None
[2017-08-18 08:58] LABS: ABSOLUTE BASOPHIL COUNT 0 /CUMM (0.0-0.2); ABSOLUTE EOSINOPHIL COUNT 0.3 /CUMM (0.0-0.7); ABSOLUTE LYMPH COUNT 1.6 /CUMM (1.2-3.4); ABSOLUTE MONOCYTE COUNT 0.8 /CUMM (0.10-0.60); BASOPHIL % 0.5 % (0.0-2.0); EOSINOPHIL % 3.9 % (0-5); GRANULOCYTE % 64.4 % (42.2-75.2); HEMATOCRIT 23.5 % (42-52); MEAN CORPUSCULAR HGB 31.6 PG (27.0-31.0); MEAN CORPUSCULAR HGB CONC 32.7 G/DL (33.0-37.0); MEAN CORPUSCULAR VOLUME 96.6 FL (80.0-94.0); MEAN PLATELET VOLUME 8.1 FL (7.4-10.4); PLATELET COUNT 186 /CUMM (130-400); RBC DISTRIBUTION WIDTH 14.7 % (11.5-14.5); RED BLOOD CELL CT 2.44 /CUMM (4.70-6.10); WHITE BLOOD CELL COUNT 7.8 /CUMM (4.8-10.8)
--- NOTE | 2017-08-18 11:05 | PN- Nephrology ---
Assessment/Plan Assessment: 1. ESRD 2. Volume overload 3. Multiple comorbidities as noted Suggestion: 1. Hemodialysis today in progress with 2 L ultrafiltration goal over 4.25 hours as tolerated 2. Okay for discharge after dialysis from Renal standpoint Subjective Subjective: Patient feels much better today with no shortness of breath or chest pain. Seen with hemodialysis. Objective Vital Signs and I&Os Vital Signs Date Time Temp Pulse Resp B/P B/P Pulse O2 O2 Flow FiO2 Mean Ox Delivery Rate 08/18 1050 78 230/86 08/18 0729 22 93 Room Air 08/18 0715 93 Room Air 08/18 0522 97.4 92 22 150/68 96 Room Air 08/17 2234 92 152/92 08/17 2134 92 167/97 08/17 2128 98.4 92 20 167/97 100 Nasal 3.0L Cannula 08/17 1712 96.4 91 20 156/87 100 Nasal 3.0L Cannula 08/17 1633 Nasal 3.0L Cannula 08/17 1141 98.6 90 20 160/72 Intake & Output 08/18 1600 08/18 0400 08/17 1600 08/17 0400 08/16 1600 08/16 0400 Intake Total 180 600 Output Total Balance 180 600 Intake, Oral 180 600 Number 0 Bowel Movements Patient 357 lb 357 lb 350 lb Weight Weight Bed scale Measurement Method Physical Exam: General: Well-developed, obese -Maldivian male in no acute distress Skin: No rash or jaundice HEENT: Conjunctivae pink, sclerae anicteric, mucous membranes moist Neck: Without masses or thyromegaly, no supraclavicular or cervical adenopathy Chest: Diminished breath sounds at bases Heart: Regular rate and rhythm without S3 or rub Abdomen: Obese, soft and nontender without palpable masses or organomegaly Extremities: Without cyanosis; trace edema Neuro: No focal findings, no asterixis or myoclonus Results Pertinent Lab Results: Laboratory Tests 08/18 08/17 0745 0539 Chemistry Sodium (137 - 145 mmol/L) 140 139 Potassium (3.5 - 5.1 mmol/L) 4.8 4.7 Chloride (98 - 107 mmol/L) 102 104 Carbon Dioxide (22 - 30 mmol/L) 24 19 L Anion Gap (5 - 16) 15 16 BUN (9 - 20 mg/dL) 45 H 59 H Creatinine (0.7 - 1.2 mg/dL) 6.9 *H 8.4 *H Estimated GFR (>60 ml/min) 8 L 7 L BUN/Creatinine Ratio (7 - 25 %) 6.5 L 7.0 Glucose (65 - 99 mg/dL) 133 H Calcium (8.4 - 10.2 mg/dL) 7.4 L Phosphorus (2.5 - 4.5 mg/dL) 5.8 H 6.0 H Total Bilirubin (0.2 - 1.3 mg/dL) 0.5 AST (17 - 59 U/L) 20 ALT (21 - 72 U/L) 42 Alkaline Phosphatase (< 127 U/L) 67 Troponin I (<0.11 ng/ml) 0.06 [id number] Pept (<125 pg/mL) 29417 H Total Protein (6.3 - 8.2 g/dL) 7.0 Albumin (3.5 - 5.0 g/dL) 3.6 Globulin (1.9 - 4.2 gm/dL) 3.4 Albumin/Globulin Ratio (1.1 - 2.2 %) 1.1 Coagulation PT (9.4 - 12.5 SEC) 11.4 INR (0.90 - 1.17) 1.09 APTT (25 - 37 SEC) 27 Hematology CBC w Diff NO MAN DIFF REQ NO MAN DIFF REQ WBC (4.8 - 10.8 /CUMM) 7.8 10.9 H RBC (4.70 - 6.10 /CUMM) 2.44 L 2.62 L Hgb (14.0 - 18.0 G/DL) 7.7 L 8.0 L Hct (42 - 52 %) 23.5 L 25.4 L MCV (80.0 - 94.0 FL) 96.6 H 96.9 H MCH (27.0 - 31.0 PG) 31.6 H 30.7 RDW (11.5 - 14.5 %) 14.7 H 15.2 H Plt Count (130 - 400 /CUMM) 186 241 MPV (7.4 - 10.4 FL) 8.1 8.0 Gran % (42.2 - 75.2 %) 64.4 68.4 Lymphocytes % (20.5 - 51.1 %) 20.9 18.9 L Monocytes % (1.7 - 9.3 %) 10.3 H 8.4 Eosinophils % (0 - 5 %) 3.9 4.1 Basophils % (0.0 - 2.0 %) 0.5 0.2 Absolute Granulocytes (1.4 - 6.5 /CUMM) 5.0 7.4 H Absolute Lymphocytes (1.2 - 3.4 /CUMM) 1.6 2.0 Absolute Monocytes (0.10 - 0.60 /CUMM) 0.8 H 0.9 H Absolute Eosinophils (0.0 - 0.7 /CUMM) 0.3 0.4 Absolute Basophils (0.0 - 0.2 /CUMM) 0 0 PUBS MCHC (33.0 - 37.0 G/DL) 32.7 L 31.7 L
--- NOTE | 2017-08-18 12:09 | PN- Att Addend ---
Attending Addendum Attending Brief Note Patient seen and examined, feeling overall better. Patient was seen at dialysis. His breathing has improved. Vital Signs Date Time Temp Pulse Resp B/P B/P Pulse O2 O2 Flow FiO2 Mean Ox Delivery Rate 08/18 1050 78 230/86 08/18 0729 22 93 Room Air 08/18 0715 93 Room Air 08/18 0522 97.4 92 22 150/68 96 Room Air 08/17 2234 92 152/92 08/17 2134 92 167/97 08/17 2128 98.4 92 20 167/97 100 Nasal 3.0L Cannula 08/17 1712 96.4 91 20 156/87 100 Nasal 3.0L Cannula 08/17 1633 Nasal 3.0L Cannula on exam; aox3, nad. cv; s1,s2, rrr resp; clear but overall decreased bs. abd; soft, nt, bs+ ext; 1+ edema Laboratory Tests 08/18 0745 Chemistry Sodium (137 - 145 mmol/L) 140 Potassium (3.5 - 5.1 mmol/L) 4.8 Chloride (98 - 107 mmol/L) 102 Carbon Dioxide (22 - 30 mmol/L) 24 Anion Gap (5 - 16) 15 BUN (9 - 20 mg/dL) 45 H Creatinine (0.7 - 1.2 mg/dL) 6.9 *H Estimated GFR (>60 ml/min) 8 L BUN/Creatinine Ratio (7 - 25 %) 6.5 L Phosphorus (2.5 - 4.5 mg/dL) 5.8 H Hematology CBC w Diff NO MAN DIFF REQ WBC (4.8 - 10.8 /CUMM) 7.8 RBC (4.70 - 6.10 /CUMM) 2.44 L Hgb (14.0 - 18.0 G/DL) 7.7 L Hct (42 - 52 %) 23.5 L MCV (80.0 - 94.0 FL) 96.6 H MCH (27.0 - 31.0 PG) 31.6 H RDW (11.5 - 14.5 %) 14.7 H Plt Count (130 - 400 /CUMM) 186 MPV (7.4 - 10.4 FL) 8.1 Gran % (42.2 - 75.2 %) 64.4 Lymphocytes % (20.5 - 51.1 %) 20.9 Monocytes % (1.7 - 9.3 %) 10.3 H Eosinophils % (0 - 5 %) 3.9 Basophils % (0.0 - 2.0 %) 0.5 Absolute Granulocytes (1.4 - 6.5 /CUMM) 5.0 Absolute Lymphocytes (1.2 - 3.4 /CUMM) 1.6 Absolute Monocytes (0.10 - 0.60 /CUMM) 0.8 H Absolute Eosinophils (0.0 - 0.7 /CUMM) 0.3 Absolute Basophils (0.0 - 0.2 /CUMM) 0 PUBS MCHC (33.0 - 37.0 G/DL) 32.7 L A/P; 56 y/o M with pmh sig for diabetes, hypertension, CVA in 2015, ESRD ( dialysis Thu, and Thursday), admitted with shortness of breath secondary to fluid overload due to incomplete dialysis session. Patient receiving dialysis today. He is overall looking much better. After the dialysis he can be discharged home. He will be continued on his home medications. Notified case coordinator about transport issues.
[2017-08-18 12:38] VITALS: BP 150/78
--- NOTE | 2017-08-18 18:01 | Discharge Summary ---
Visit Information Visit Dates Admission Date: 08/17/17 Discharge Date: 08/18/17 Hospital Course Course Attending Physician: Ana Maria Amaral MD Primary Care Physician: Salvatore Cortes APRN [facility] Course: Patient is 56-year-old morbidly obese -Martiniquais male with history of diabetes, hypertension, end-stage renal disease came in with chief complaint of worsening shortness of breath most likely due to suboptimal dialysis session and transportation issues lately. During his hospital stay he had dialysis on August 17 and also another session on . Patient was discharged home on his home medications. Complications: None Allergies: Coded Allergies: metformin (Mild, DIARREHA 08/17/17) Sulfa (Sulfonamide Antibiotics) (UNKNOWN 08/18/17) PER DIALYSIS ORDER SHEET OF 08/18/17 (SJS) amphetamine (From ADDERALL) (UNKNOWN 08/18/17) PER DIALYSIS ORDER SHEET OF 08/18/17 (SJS) dextroamphetamine (From ADDERALL) (UNKNOWN 08/18/17) PER DIALYSIS ORDER SHEET OF 08/18/17 (SJS) glyburide (HYPOGLYCEMIA 08/17/17) shellfish derived (UNKNOWN 08/18/17) PER DIALYSIS ORDER SHEET OF 08/18/17 (SJS) SHELLFISH Significant Procedures: SERVICE DATE: 08/17/17 EXAM TYPE: RAD - XRY-PORTABLE CHEST XRAY EXAMINATION: XR PORTABLE CHEST CLINICAL INFORMATION: Dyspnea, hypoxia COMPARISON: 07/29/2016 TECHNIQUE: Portable frontal view of the chest was obtained. FINDINGS: Lung volumes are symmetric. No focal consolidation is seen. No evidence of pneumothorax, significant pleural effusion, or overt pulmonary edema. The cardiac silhouette remains enlarged. No acute osseous findings are seen. IMPRESSION: Enlarged cardiac silhouette, similar to prior. No acute pulmonary findings. DICTATED BY: William Jones MD DATE/TIME DICTATED:08/17/17310 ACUTE CARE PHYSICAL THERAPIST:LONG DATE/TIME TRANSCRIBED:08/17/17310 CONFIDENTIAL, DO NOT COPY WITH Disposition Summary Disposition Principal Diagnosis: End-stage renal disease on dialysis. Morbib Obesity. Additional Diagnosis: Hypertension Discharge Disposition: home or self care Discharge Instructions General Discharge Information Code Status: Full Code Patient's Diet: Renal dialysis diet Patient's Activity: As tolerated Follow-Up Instructions/Appts: Please follow-up with your primary care physician in one week of discharge Please continue dialysis on scheduled days. Please follow-up with nephrology in 1-2 weeks of discharge Medications at Discharge Discharge Medications: Continue taking these medications: Duloxetine Hydrochloride (Cymbalta) 30 MG CAPSULE.DR 1 Capsule ORAL DAILY Comments: Last Taken:08/18/17 Time: 1300PM Labetalol HCl (Labetalol HCl) 100 MG TABLET 1 Tablet ORAL TWICE DAILY Comments: Last Taken: 08/18/17 Time: 1030AM Tamsulosin HCl (Flomax) 0.4 MG CAP.ER.24H 1 Capsule ORAL DAILY Qty = 30 Comments: NOT GIVEN IN HOSPITAL Calcium Acetate (Calcium Acetate) 667 MG CAPSULE 1 Capsule ORAL WITH MEALS Qty = 90 Comments: Last Taken:08/18/17 Time: 1300PM Gabapentin (Gabapentin) 100 MG CAPSULE 2 Capsule ORAL TAKE AT BEDTIME Qty = 60 Comments: Last Taken: 08/17/17 Time: 2200PM Midodrine HCl (Midodrine HCl) 10 MG TABLET 1 Tablet ORAL SEE INSTRUCTIONS Qty = 13 Instructions: 1 TABLET BEFORE DIALYSIS SESSION Comments: [facility] Vit B Cmplx 3/FA/Vit C/Biotin (Nephro-Ashley Rx Tablet) 1 MG-60 MG-300 MCG TABLET 1 Tablet ORAL DAILY Qty = 30 Comments: Last Taken:08/18/17 Time: 1300PM Aspirin (Aspirin*) 325 MG TABLET 1 Tablet ORAL DAILY Qty = 30 Comments: Last Taken: 08/18/17 Time: 1300PM Insulin-Lantus (Lantus) 100 UNIT/ML VIAL 42 Units Inject into fatty tissue TAKE AT BEDTIME Qty = 1 Comments: NOT GIVEN IN HOSPITAL Atorvastatin Calcium (Atorvastatin Calcium) 20 MG TABLET 1 Tablet ORAL DAILY Qty = 30 Comments: NOT GIVEN IN HOSPITAL Olanzapine (Zyprexa) 2.5 MG TABLET 1 Tablet ORAL DAILY Comments: NOT GIVEN IN HOSPITAL Copies To: Salvatore Cortes APRN Attending MD Review Statement Documenting Attending: Munir VALLADARES,Ana Maria
== END 2017-08-18 14:32 | disposition home health service (06) | DRG 640 ==
LOC: ERH 01:58 → 2NB 08:01 → ERHI 08:01 → ENRESERV 15:08 → 2NB 16:36 → ENPENDDIS 08-18 10:00 → 2NB 08-18 14:32
PROVIDERS: Internal Medicine; Pediatrics
PROC: 5A1D70Z Performance of Urinary Filtration, Intermittent, Less than 6 Hours Per Day (ICD-10-PCS; principal; 2017-08-17)
DX: E87.79 Other fluid overload (principal); N18.6 End stage renal disease; E11.22 Type 2 diabetes mellitus with diabetic chronic kidney disease; E11.42 Type 2 diabetes mellitus with diabetic polyneuropathy; Z68.41 Body mass index [BMI] 40.0-44.9, adult; I12.0 Hypertensive chronic kidney disease with stage 5 chronic kidney disease or end stage renal disease; Z99.2 Dependence on renal dialysis; Z91.15 Patient's noncompliance with renal dialysis; E66.9 Obesity, unspecified; I69.90 Unspecified sequelae of unspecified cerebrovascular disease; Z79.4 Long term (current) use of insulin; Z79.82 Long term (current) use of aspirin
CPT/HCPCS: 2NBSP; 71045; 82436; 87804; 87804-59; 93005; 93010; J0885; J1644

== ENCOUNTER 2017-10-16 20:52 | Emergency (ER) | payer OTHER, MEDICARE ==
[~2017-10-16] VITALS: Ht 193 cm; Wt 158.8 kg
[~2017-10-16 20:52] MED LIST: ASPIRIN325 M2 PO; ATORVASTATIN CA20 M1 PO; CALCIUM ACETAT667 M3 PO; CYMBALTA30 M1 PO; FLOMAX0.4 M1 PO; GABAPENTIN100 M2 PO; LABETALOL HCL100 M1 PO; LANTUS100 UNIT/1 SC; MIDODRINE HCL10 M1 PO; NEPHRO-VITE RX1 EACH PO; ZYPREXA2.5 M1 PO
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
[2017-10-17] MEDS ORDERED: BACITRACIN28.4 GM TOP (00:22)
[2017-10-17 00:47] VITALS: BP 127/82
== END 2017-10-17 00:48 ==
LOC: ERH 20:52
DX: S91.311A Laceration without foreign body, right foot, initial encounter (principal); X58.XXXA Exposure to other specified factors, initial encounter; Y92.9 Unspecified place or not applicable; Y93.9 Activity, unspecified

== ENCOUNTER 2018-03-22 06:10 | Inpatient (IN) | payer OTHER, MEDICARE ==
[~2018-03-22] VITALS: Ht 180.3 cm; Wt 167.6 kg
[~2018-03-22 06:10] MED LIST changes: +BACITRACIN28.4 GM TOP
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
--- NOTE | 2018-03-22 07:07 | RADIOLOGY REPORT ---
EXAMINATION: XR PORTABLE CHEST CLINICAL INFORMATION: Syncope COMPARISON: 08/17/2017 TECHNIQUE: Portable frontal view of the chest was obtained. FINDINGS: The lungs appear hypoinflated. No focal consolidation is seen. Assessment of the lungs is partially limited due to motion artifact. No appreciable pneumothorax, pleural effusion, or overt pulmonary edema. The cardiac silhouette is enlarged. No acute osseous findings are seen. IMPRESSION: Enlarged cardiac silhouette again demonstrated. No appreciable pulmonary abnormality.
--- NOTE | 2018-03-22 07:39 | CT SCAN REPORT ---
EXAMINATION: CT HEAD WITHOUT CONTRAST CLINICAL INFORMATION: Syncope. Headache. Rule out hemorrhagic stroke. COMPARISON: Report cerebral angiography 07/22/2016, CTA head and neck 07/10/2016. TECHNIQUE: Contiguous axial imaging was performed from the skull base to vertex without intravenous administration of contrast. DLP: 621 mGy-cm FINDINGS: High density embolic material is present in the vein of Abe and multiple adjacent by mouth feeding arteries corresponding to findings identified on the cerebral angiogram of 07/18/2016. Scattering artifact results in obscuration of adjacent transaxial structures. Making allowances for significant artifact, no gross intracranial hemorrhage or acute infarcts are noted. Moderate diffuse commensurate prominence of the ventricles and sulci is visualized. Bilateral thalamic less than/dystrophic type calcification/mineralization are again visualized. These findings may represent the chronic sequela of venous arterialization in the region of the thalami related to the adjacent dural AVF. Similar findings were present on the 07/10/2016 CT of the head and are grossly unchanged. The orbits and globes are partially included in the image [id number] and demonstrate mild bilaterally symmetric proptosis grossly unchanged in magnitude compared with 07/10/2016. Visualized paranasal sinuses, mastoid air cells and middle ear cavities are clear. IMPRESSION: 1. No acute abnormalities identified. No evidence of acute intracranial hemorrhage. 2. 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 Embolic material is present in the vein of Abe and within multiple carli feeding vessels. Scattering artifact related to the high density embolic material partially obscures visualization of adjacent structures. Making allowances for artifact, no gross intracranial hemorrhage is identified.
[2018-03-22 08:31] LABS: ABSOLUTE BASOPHIL COUNT 0.1 /CUMM (0.0-0.2); ABSOLUTE EOSINOPHIL COUNT 0.5 /CUMM (0.0-0.7); ABSOLUTE LYMPH COUNT 2.2 /CUMM (1.2-3.4); ABSOLUTE MONOCYTE COUNT 0.8 /CUMM (0.10-0.60); BASOPHIL % 0.7 % (0.0-2.0); EOSINOPHIL % 5.2 % (0-5); GRANULOCYTE % 62.7 % (42.2-75.2); HEMATOCRIT 31.6 % (42-52); MEAN CORPUSCULAR HGB 28.9 PG (27.0-31.0); MEAN CORPUSCULAR HGB CONC 32.5 G/DL (33.0-37.0); MEAN CORPUSCULAR VOLUME 88.6 FL (80.0-94.0); MEAN PLATELET VOLUME 8.4 FL (7.4-10.4); PLATELET COUNT 184 /CUMM (130-400); RED BLOOD CELL CT 3.57 /CUMM (4.70-6.10); WHITE BLOOD CELL COUNT 9.5 /CUMM (4.8-10.8)
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
[2018-03-22] MEDS ORDERED: GABAPENTIN100 M2 PO (12:20)
[2018-03-22] MEDS ORDERED: LANTUS100 UNIT/1 SC (12:20)
--- NOTE | 2018-03-22 14:13 | Admission Certification ---
Admission Certification Certification Statement - As attending physician, I certify that at the time of - admission, based on clinical presentation, severity of - symptoms, need for further diagnostic testing and - therapeutic interventions, and risk of adverse outcomes - without in-hospital treatment, in my clinical assessment, - this patient requires an acute hospital stay for a minimum - of two nights or longer. I have also considered psychsocial - factors such as support system, advanced age, financial - issues, cognitive issues, and failed out-patient treatments, - past re-admission history, safety of patient, and lack of - compliance as applicable. Specific rationale supporting this admission is: near syncope episode/ ? Seizure episodes , esrd on HD.
[2018-03-22] MEDS ORDERED: CARVEDILOL6.25 M1 PO (15:44)
[2018-03-22] MEDS ORDERED: LISINOPRIL20 M1 PO (15:45)
[2018-03-22 19:30] VITALS: BP 162/90
[2018-03-22 22:15] VITALS: BP 152/90
[2018-03-23 06:33] VITALS: BP 132/86
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
--- NOTE | 2018-03-23 09:03 | PN- Housestaff ---
Audelia VALLADARES,Oly 03/23/18 0902: Subjective Follow-up For: near syncope esrd on hd Tele-Events Since Last Visit: no events Subjective: patient seen and examined. He is to go for dialysis today with goal UF of 5L. His vitals are stable. He states that he feels good and has had no further episodes of blacking out or confusion. He denies any dizziness, shortness of breath, chest pain. Review of Systems Constitutional: Reports: no symptoms. EENTM: Reports: no symptoms. Cardiovascular: Reports: no symptoms. Respiratory: Reports: no symptoms. Gastrointestinal: Reports: no symptoms. Genitourinary: Reports: no symptoms. Musculoskeletal: Reports: no symptoms. Skin: Reports: lesions. Objective Last 24 Hrs of Vital Signs/I&O Vital Signs Date Time Temp Pulse Resp B/P B/P Pulse O2 O2 Flow FiO2 Mean Ox Delivery Rate 03/230 97.9 86 20 138/84 97 Room Air 03/23 2200 86 138/84 03/23 2200 86 138/84 03/23 1459 98.1 93 20 154/78 95 Room Air 03/23 1252 89 140/77 03/23 1252 89 140/77 03/23 0633 98.3 85 20 132/86 94 Room Air Intake & Output 03/23 1600 03/23 0800 03/23 0000 Intake Total 400 300 300 Output Total 5000 Balance -4600 300 300 Intake, Oral 400 300 300 Output, 5000 Dialysate Patient 378 lb Weight Weight Bed scale Measurement Method Physical Exam General Appearance: Alert, Oriented X3, Cooperative, No Acute Distress Skin: No Rashes, right foot dorsum ulcer bandaged and clean Skin Temp/Moisture Exam: Warm/Dry Sepsis Skin Exam (color): Normal for Ethnicity Cardiovascular: Regular Rate, Normal S1, Normal S2, No Murmurs Lungs: Clear to Auscultation, Normal Air Movement Abdomen: Normal Bowel Sounds, Soft Neurological: Normal Speech Extremities: No Clubbing, No Cyanosis, Normal Pulses, right ankle chronically larger than left sp surgery of ankle years ago Current Medications: Current Medications Sig/Chapis Start time Last Medication Dose Route Stop Time Status Admin Aspirin 81 MG DAILY 03/24 09 AC PO Aspirin 325 MG DAILY 03/23 09 DC PO Atorvastatin Calcium 20 MG QPM 03/22 2100 AC 03/23 PO 2241 Carvedilol 6.25 MG BID 03/22 2100 AC 03/23 PO 2200 Duloxetine HCl 30 MG DAILY 03/23 0900 AC 03/23 PO 1252 Epoetin Jaime 1,000 UNIT TuThSa PRN 03/23 0800 AC IV Gabapentin 300 MG QPM 03/22 2100 AC 03/23 PO 2200 Heparin Sodium 5,000 UNIT Q8 03/22 1400 AC 03/23 (Porcine) SC 2230 Insulin Aspart 0 TIDAC 03/22 1700 AC 03/23 SC 1757 Insulin Detemir 47 UNITS QPM 03/22 2100 AC 03/23 SC 2230 Lisinopril 20 MG DAILY 03/23 0900 AC 03/23 PO 1252 Olanzapine 2.5 MG QPM 03/22 2100 AC 03/23 PO 2200 Paricalcitol 5 MCG TuThSa PRN 03/23 0815 AC IV Sevelamer Carbonate 1,600 MG WM 03/22 1700 AC 03/23 PO 1757 Tamsulosin HCl 0.4 MG QPM 03/22 2100 AC 03/23 PO 2200 Last 24 Hrs of Lab/[place] Results Last 24 Hrs of Labs/Mics: Laboratory Tests 03/23/18 0748: Anion Gap 14, Estimated GFR 5 L, BUN/Creatinine Ratio 7.2, Calcium 7.5 L, CBC w Diff NO MAN DIFF REQ, RBC 3.41 L, MCV 88.3, MCH 28.5, MCHC 32.2 L, RDW 18.2 H, MPV 8.6, Gran % 56.5, Lymphocytes % 26.4, Monocytes % 10.4 H, Eosinophils % 5.8 H, Basophils % 0.9, Absolute Granulocytes 4.6, Absolute Lymphocytes 2.2, Absolute Monocytes 0.9 H, Absolute Eosinophils 0.5, Absolute Basophils 0.1 03/23/18 0600: Sodium Cancelled, Potassium Cancelled, Chloride Cancelled, Carbon Dioxide Cancelled, Anion Gap Cancelled, BUN Cancelled, Creatinine Cancelled, BUN/ Creatinine Ratio Cancelled, CBC w Diff Cancelled, WBC Cancelled, RBC Cancelled, Hgb Cancelled, Hct Cancelled, MCV Cancelled, MCH Cancelled, MCHC Cancelled, RDW Cancelled, Plt Count Cancelled, MPV Cancelled Assessment/Plan Assessment: This is a 57-year-old male with a past medical history significant for diabetes, end-stage renal disease on hemodialysis Shawn[facility], , Thursday, hemorrhagic CVA in 2016, morbid obesity, GERD, hypertension, that is brought in by ambulance from home for worsening recent history of "spacing out"/presyncope. The patient has accompanying headaches that extend into his left eye. The patient has had multiple health issues and has been in and out of rehabilitation over the past 5 years secondary to a broken ankle and a hemorrhagic stroke requiring repair of AV fistula, and following this a concussion requiring an unspecified neurological procedure with bur holes and radiation. The patient states that he has similar symptoms preceding his hemorrhagic stroke. He states that he recently has not felt himself. He lives alone but does have help at home. Patient has a family history of diabetes and hypertension, his father was on long-time dialysis. In the ED, vitals were temperature 97.8, pulse 96, sensory rate 18, blood pressure 141/76, 95% oxygen saturation on room air. Physical exam showed an obese male in mild distress, alert and oriented 3, that spoke very slow, functioning AV fistula in the right arm, normal breath sounds, cardiovascular exam regular rate and rhythm, normal gastrointestinal exam, right foot swelling compared to left that is chronic, chronic right-sided foot wound. Labs showed hemoglobin 10.3, sodium 136, creatinine of 9.5, lactic acid negative, glucose 189, direct bilirubin 0.5, alkaline phosphatase 131, negative troponin, lipase of 488. 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 Assessment -NEAR SYNCOPE 2/2 POSSIBLE SEIZURE in the setting of previous hemorrhagic stroke vs TIA vs METABOLIC DISTURBANCE in a dialysis patient, dysrhythmia -ESRD ON HD Thursday, , Thursday, 7kg over his goal EDW on admission -HTN and diabetes -RIGHT LOWER EXT WOUND with peripheral neuropathy at level of mid-calves Plan -Admitted patient to telemetry for evaluation and close monitoring -EKGs and troponins ruled out ACS. Patient has had no events on telemetry. -Neuro consult was placed day of admission, patient not yet seen, consult re- placed today. -We will hold off on MRI of the head unless suggested by neurology -EEG read pending -Patient found to have low Ca levels, is dialysis patient and levels are only borderline low, unlikely cause for his confusion and black-outs -Accu-Cheks, continue Levemir and medium dose sliding scale insulin -Nephro consult for repeat dialysis tomorrow -Cardiac consult with Dr. Vines who is his porcelain slusher to assess if there is a cardiac cause for his pre-syncopal episodes -Wound care for right lower extremity wound -Continue home medications, Cymbalta, aspirin 325, lisinopril 20 mg, Lipitor 20 mg, Zyprexa 2.5 mg, Flomax, gabapentin 300 mg, carvedilol 6.25 mg twice a day, Renvela 1600 mg with dialysis -Orthostatic vital signs Patient is full code Renal diet DVT prophylaxis with Alps and heparin Problem List: 1. Ulcer of ankle 2. H/O: CVA (cerebrovascular accident) 3. Pre-syncope 4. ESRD (end stage renal disease) Pain Ratin Pain Location: na Pain Goal: Remain pain free Pain Plan: na Tomorrow's Labs & Rationales: dialysis will put in labs for tomorrow Julia Alexander 03/23/18 1228: Attending MD Review Statement Attending Statement Attending MD Statement: examined this patient, discuss w/resident/PA/BANQUET ATTENDANT, agreed w/resident/PA/BANQUET ATTENDANT, reviewed EMR data (avail), discussed with nursing, discussed with case mgmt Attending Assessment/Plan: 57 yr old male with pmh of morbid obesity , esrd on hd who was in [place] from 2012 to 2016, Hemorrhagic stroke in 2016 likely secondary to AV fistula, had some procedure done by Dr Zhang at [place] in 2016, DM and now lives independently in an apartment in [place] who uses electric wheelchair and a walker to ambulate persented with multiple episodes of zoning out and near syncopal episodes over the last few months but the frequency increase over the last one week and he decided to come to the ER for evlauation. His BS in er was ok. His BP was ok too. Labs are ok. Near syncopal episodes- unclear whether these are realted to arrhythmias or ? Seizrues , we will monitor him on tele, get cardio consult, serial trop and ekg, get EEG and neuro consult. will also do accucheks to r/o low BS. His Head CT did not show any acute stroke. will get records from [place]. Will f/u on neuro consult and EEG findings. pt had EEG done last night. ESRD on HD- pt is much more above his dry weight- 13 KG. Nephrology input appreciated. Pt getting HD today .
[2018-03-23 09:31] LABS: ABSOLUTE BASOPHIL COUNT 0.1 /CUMM (0.0-0.2); ABSOLUTE EOSINOPHIL COUNT 0.5 /CUMM (0.0-0.7); ABSOLUTE GRANULOCYTE CT 4.6 /CUMM (1.4-6.5); ABSOLUTE LYMPH COUNT 2.2 /CUMM (1.2-3.4); ABSOLUTE MONOCYTE COUNT 0.9 /CUMM (0.10-0.60); BASOPHIL % 0.9 % (0.0-2.0); EOSINOPHIL % 5.8 % (0-5); GRANULOCYTE % 56.5 % (42.2-75.2); HEMATOCRIT 30.1 % (42-52); MEAN CORPUSCULAR HGB 28.5 PG (27.0-31.0); MEAN CORPUSCULAR HGB CONC 32.2 G/DL (33.0-37.0); MEAN CORPUSCULAR VOLUME 88.3 FL (80.0-94.0); MEAN PLATELET VOLUME 8.6 FL (7.4-10.4); PLATELET COUNT 185 /CUMM (130-400); RBC DISTRIBUTION WIDTH 18.2 % (11.5-14.5); RED BLOOD CELL CT 3.41 /CUMM (4.70-6.10); WHITE BLOOD CELL COUNT 8.2 /CUMM (4.8-10.8)
--- NOTE | 2018-03-23 13:30 | Cons- Cardiology ---
General Information and HPI Consulting Request Date of Consult: 03/23/18 Requested By: Julia Alexander MD Reason for Consult: Syncope History of Present Illness: The patient is a 57-year-old male who follows up with me in the office for systolic dysfunction and moderate mitral regurgitation. His LVEF is 41%, and he also has a history of diabetes mellitus, end-stage renal disease, and intracranial bleed. He was brought to the hospital because of multiple episodes of syncope and presyncope. He has experienced multiple episodes of "spacing out " and headaches extending to his left eye. These have recently become more common. He notes poor memory lately. Yesterday he was on his way to the kitchen to get breakfast in a motorized wheelchair. He does not recall what happened, however he awoke after crashing into boxes. No current head trauma. No shortness of breath. No chest pain. No palpitations. No orthopnea. No nausea or vomiting. he is known to have chronic systolic dysfunction, with LVEF 41% Allergies/Medications Allergies: Coded Allergies: metformin (Mild, DIARREHA 08/17/17) Sulfa (Sulfonamide Antibiotics) (UNKNOWN 08/18/17) PER DIALYSIS ORDER SHEET OF 08/18/17 (SJS) amphetamine (From ADDERALL) (UNKNOWN 08/18/17) PER DIALYSIS ORDER SHEET OF 08/18/17 (SJS) dextroamphetamine (From ADDERALL) (UNKNOWN 08/18/17) PER DIALYSIS ORDER SHEET OF 08/18/17 (SJS) glyburide (HYPOGLYCEMIA 08/17/17) shellfish derived (UNKNOWN 08/18/17) PER DIALYSIS ORDER SHEET OF 08/18/17 (SJS) SHELLFISH Home Med List: Aspirin (Aspirin*) 325 MG TABLET 1 TAB PO DAILY STROKE (Reported) Atorvastatin Calcium 20 MG TABLET 1 TAB PO DAILY CHOLESTEROL (Reported) Bacitracin 500 UNIT/GRAM OINT...G. 1 DEANN TOP BID SKIN TEAR apply to affected area(s) Calcium Acetate 667 MG CAPSULE 1 CAP PO WM RENAL (Reported) Carvedilol 6.25 MG TABLET 1 TAB PO BID heart rate (Reported) Duloxetine Hydrochloride (Cymbalta) 30 MG CAPSULE.DR 1 CAP PO DAILY PAIN ( Reported) Gabapentin 100 MG CAPSULE 3 CAP PO QHS NEUROPATHY Insulin-Lantus (Lantus) 100 UNIT/ML VIAL 47 UNITS SC QHS DIABETES Labetalol HCl 100 MG TABLET 1 TAB PO BID HTN (Reported) Lisinopril 20 MG TABLET 1 TAB PO DAILY HTN (Reported) Midodrine HCl 10 MG TABLET 1 TAB PO SEE ADMIN CRITERIA DIALYSIS (Reported) 1 TABLET BEFORE DIALYSIS SESSION Olanzapine (Zyprexa) 2.5 MG TABLET 1 TAB PO DAILY MOOD (Reported) Tamsulosin HCl (Flomax) 0.4 MG CAP.ER.24H 1 CAP PO DAILY HTN (Reported) Vit B Cmplx 3/FA/Vit C/Biotin (Nephro-Ashley Rx Tablet) 1 MG-60 MG-300 MCG TABLET 1 TAB PO DAILY DIALYSIS (Reported) Current Medications: Current Medications Sig/Chapis Start time Last Medication Dose Route Stop Time Status Admin Aspirin 325 MG DAILY 03/23 0900 AC 03/23 PO 125 Atorvastatin Calcium 20 MG QPM 03/22 2100 AC 03/22 PO 2110 Carvedilol 6.25 MG BID 03/22 2100 AC 03/23 PO 125 Duloxetine HCl 30 MG DAILY 03/23 0900 AC 03/23 PO 125 Epoetin Jaime 1,000 UNIT TuThSa PRN 03/23 0800 AC IV Gabapentin 300 MG QPM 03/22 2100 AC 03/22 PO 2112 Heparin Sodium 0 .STK-MED ONE 03/22 1449 DC (Porcine) .ROUTE Heparin Sodium 5,000 UNIT Q8 03/22 1400 AC 03/22 (Porcine) SC 2110 Insulin Aspart 0 TIDAC 03/22 1700 AC 03/23 SC 1330 Insulin Detemir 47 UNITS QPM 03/22 2100 AC 03/22 SC 2112 Lisinopril 20 MG DAILY 03/23 0900 AC 03/23 PO 1252 Olanzapine 2.5 MG QPM 03/22 2100 AC 03/22 PO 211 Paricalcitol 5 MCG TuThSa PRN 03/23 0815 AC IV Sevelamer Carbonate 1,600 MG WM 03/22 1700 AC 03/23 PO 125 Tamsulosin HCl 0.4 MG QPM 03/22 2100 AC 03/22 PO 2111 Review of Systems Review of Systems: No fever. No chills. No rash. No tremor. All other systems were reviewed, and were noted to be negative. Past History Travel History Traveled to [place] past 21 day No Medical History Neurological: HEMORRHAGIC STROKE 2015 EENT: NONE Cardiovascular: hypertension Respiratory: pulmonary edema Gastrointestinal: NONE Hepatic: NONE Renal: esrd on hemodialysis Musculoskeletal: NONE Psychiatric: NONE Endocrine: diabetes Blood Disorders: NONE Cancer(s): NONE SENIOR CLERK/Reproductive: NONE Surgical History Surgical History: NONE Family History Relations & Conditions If Any: MOTHER Heart failure Psychosocial History Services at Home: Home Health Aide, Nursing, Occupational Therapy, Physical Therapy Primary Language: Nauruan Smoking Status: Never Smoked ETOH Use: denies use Illicit Drug Use: denies illicit drug use Exam & Diagnostic Data Vital Signs and I&O Vital Signs Date Time Temp Pulse Resp B/P B/P Pulse O2 O2 Flow FiO2 Mean Ox Delivery Rate 03/23 1252 89 140/77 03/23 1252 89 140/77 03/23 0633 98.3 85 20 132/86 94 Room Air 03/22 2215 97.4 90 20 152/90 94 Room Air 03/22 2112 94 162/90 03/22 2112 94 162/90 03/22 1930 97.6 94 20 162/90 97 Room Air 03/22 1705 98.0 86 18 160/75 96 Room Air Intake & Output 03/23 1600 03/23 0800 03/23 0000 03/22 1600 03/22 0800 03/22 0000 Intake Total 300 300 Output Total Balance 300 300 Intake, Oral 300 300 Patient 378 lb 290 lb Weight Weight Bed scale Reported by Patient Measurement Method Physical Exam: Gen: The patient is in no acute distress HEENT: Normal nose, ears, and oropharynx. Pupils equal bilaterally. Conjunctiva normal. Neck: Supple with no JVD, no masses, and no thyromegaly Lungs: Clear to auscultation with normal respiratory effort Heart: RRR, S1, S2, 2/6 systolic murmur. No peripheral edema, 2+ pulses in the lower extremities bilaterally Abdomen: Soft, nontender, no masses. No hepatomegaly. No splenomegaly Extremities: No clubbing or cyanosis. Normal muscle strength in the upper and lower extremities Skin: Normal skin turgor with no skin ulcers or lesions noted. Neuro: Cranial nerves intact. Sensation intact Psych: Alert and oriented x 3 with appropriate affect Labs/Wanye Results: Laboratory Tests 03/23 03/22 03/22 0748 1445 0929 Chemistry Sodium (137 - 145 mmol/L) 133 L Potassium (3.5 - 5.1 mmol/L) 5.3 H Chloride (98 - 107 mmol/L) 103 Carbon Dioxide (22 - 30 mmol/L) 16 L Anion Gap (5 - 16) 14 BUN (9 - 20 mg/dL) 79 H Creatinine (0.7 - 1.2 mg/dL) 10.8 *H Estimated GFR (>60 ml/min) 5 L BUN/Creatinine Ratio (7 - 25 %) 7.2 Lactic Acid Cancelled Calcium (8.4 - 10.2 mg/dL) 7.5 L Troponin I (<0.11 ng/ml) < 0.01 Hematology CBC w Diff NO MAN DIFF REQ WBC (4.8 - 10.8 /CUMM) 8.2 RBC (4.70 - 6.10 /CUMM) 3.41 L Hgb (14.0 - 18.0 G/DL) 9.7 L Hct (42 - 52 %) 30.1 L MCV (80.0 - 94.0 FL) 88.3 MCH (27.0 - 31.0 PG) 28.5 MCHC (33.0 - 37.0 G/DL) 32.2 L RDW (11.5 - 14.5 %) 18.2 H Plt Count (130 - 400 /CUMM) 185 MPV (7.4 - 10.4 FL) 8.6 Gran % (42.2 - 75.2 %) 56.5 Lymphocytes % (20.5 - 51.1 %) 26.4 Monocytes % (1.7 - 9.3 %) 10.4 H Eosinophils % (0 - 5 %) 5.8 H Basophils % (0.0 - 2.0 %) 0.9 Absolute Granulocytes (1.4 - 6.5 /CUMM) 4.6 Absolute Lymphocytes (1.2 - 3.4 /CUMM) 2.2 Absolute Monocytes (0.10 - 0.60 /CUMM) 0.9 H Absolute Eosinophils (0.0 - 0.7 /CUMM) 0.5 Absolute Basophils (0.0 - 0.2 /CUMM) 0.1 03/22 0806 Chemistry Sodium (137 - 145 mmol/L) 136 L Potassium (3.5 - 5.1 mmol/L) 4.6 Chloride (98 - 107 mmol/L) 101 Carbon Dioxide (22 - 30 mmol/L) 22 Anion Gap (5 - 16) 13 BUN (9 - 20 mg/dL) 62 H Creatinine (0.7 - 1.2 mg/dL) 9.5 *H Estimated GFR (>60 ml/min) 6 L BUN/Creatinine Ratio (7 - 25 %) 6.5 L Glucose (65 - 99 mg/dL) 189 H Lactic Acid (0.7 - 2.1 mmol/L) 1.4 Calcium (8.4 - 10.2 mg/dL) 7.9 L Phosphorus (2.5 - 4.5 mg/dL) 5.2 H Magnesium (1.6 - 2.3 mg/dL) 1.7 Total Bilirubin (0.2 - 1.3 mg/dL) 0.5 Direct Bilirubin (< 0.4 mg/dL) 0.5 H AST (17 - 59 U/L) 16 L ALT (21 - 72 U/L) 22 Alkaline Phosphatase (< 127 U/L) 131 H Troponin I (<0.11 ng/ml) 0.02 Total Protein (6.3 - 8.2 g/dL) 7.3 Albumin (3.5 - 5.0 g/dL) 3.8 Amylase (30 - 110 U/L) 90 Lipase (23 - 300 U/L) 488 H Hematology CBC w Diff NO MAN DIFF REQ WBC (4.8 - 10.8 /CUMM) 9.5 RBC (4.70 - 6.10 /CUMM) 3.57 L Hgb (14.0 - 18.0 G/DL) 10.3 L Hct (42 - 52 %) 31.6 L MCV (80.0 - 94.0 FL) 88.6 MCH (27.0 - 31.0 PG) 28.9 MCHC (33.0 - 37.0 G/DL) 32.5 L RDW (11.5 - 14.5 %) 18.0 H Plt Count (130 - 400 /CUMM) 184 MPV (7.4 - 10.4 FL) 8.4 Gran % (42.2 - 75.2 %) 62.7 Lymphocytes % (20.5 - 51.1 %) 22.6 Monocytes % (1.7 - 9.3 %) 8.8 Eosinophils % (0 - 5 %) 5.2 H Basophils % (0.0 - 2.0 %) 0.7 Absolute Granulocytes (1.4 - 6.5 /CUMM) 6.0 Absolute Lymphocytes (1.2 - 3.4 /CUMM) 2.2 Absolute Monocytes (0.10 - 0.60 /CUMM) 0.8 H Absolute Eosinophils (0.0 - 0.7 /CUMM) 0.5 Absolute Basophils (0.0 - 0.2 /CUMM) 0.1 Diagnostic Data EKG Results EKG tracing is independently reviewed, and reveals normal sinus rhythm at 88 with complete left bundle branch block CXR Results Enlarged cardiac silhouette again demonstrated. No appreciable pulmonary abnormality. Other Results Head CT 03/22/18: 1. No acute abnormalities identified. No evidence of acute intracranial hemorrhage. 2. 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 Embolic material is present in the vein of Abe and within multiple carli feeding vessels. Scattering artifact related to the high density embolic material partially obscures visualization of adjacent structures. Making allowances for artifact, no gross intracranial hemorrhage is identified. Echocardiogram September 30, 2017: * Mildly increased left ventricular cavity size. Moderately decreased left ventricular systolic function. Mild concentric left ventricular hypertrophy. LVEF calculated by biplane Tobias's was 41%. Mild diastolic dysfunction consistent with impaired relaxation with low to normal filling pressure (grade 1 ). * Thickened mitral valve. Moderate mitral regurgitation. * Mild tricuspid regurgitation. Right ventricular systolic pressure is normal. * Trivial pericardial effusion. Assessment/Plan Assessment/Plan The patient is a 57-year-old male with history of intracranial bleed, diabetes mellitus, end-stage renal disease, and chronic systolic dysfunction. He is admitted after multiple syncopal and presyncopal episodes. He scarlet recommendations: Es any recent cardiac symptoms. The etiology of the syncopal episodes is unclear at this time. A neurologic etiology appears to be most likely at this time, however cardiogenic syncope remains in the differential diagnosis. Recommendations: * Monitor on telemetry for arrhythmias. * Repeat echocardiogram * Myocardial infarction has been ruled out with negative troponin 2 * Continue current cardiac medication * Agree with neurology consult Consult Acknowledgment - Thank you for your consult request.
--- NOTE | 2018-03-23 13:35 | Patient Discharge Instructions ---
Discharge Instructions General Discharge Information You were seen/treated for: altered mental status "black outs" Special Instructions: Please seek medical attention if you have another episode of "passing out" or near "passing out". please follow up with pcp in one week please follow with neurology in one week please follow with nephrology for dialysis please follow with Dr Vines within 1-2 days after discharge for an echocardiogram Diet Continue normal diet: No Recommended Diet: Renal Dialysis Activity Full Activity/No Limits: Yes Acute Coronary Syndrome Inclusion Criteria At DC or during hospital stay patient has or had the following: ACS DIAGNOSIS No Discharge Core Measures Meds if any: Prescribed or Continued at Discharge Meds if any: NOT Prescribed or Continued at Discharge Congestive Heart Failure Inclusion Criteria At DC or during hospital stay patient has or had the following: CHF DIAGNOSIS No Discharge Core Measures Meds if any: Prescribed or Continued at Discharge Meds if any: NOT Prescribed or Continued at Discharge Cerebrovascular accident Inclusion Criteria At DC or during hospital stay patient has or had the following: CVA/TIA Diagnosis No Discharge Core Measures Meds if any: Prescribed or Continued at Discharge Meds if any: NOT Prescribed or Continued at Discharge Venous thromboembolism Inclusion Criteria VTE Diagnosis No VTE Type NONE VTE Confirmed by (Test) NONE Discharge Core Measures - Per Current guidelines, there needs to be overlap - treatment for the first 5 days of Warfarin therapy. - If discharged on Warfarin prior to 5 days of - overlap therapy, the patient will need to be - assessed for post discharge needs including - *Post discharge parental anticoagulation - *Warfarin and/or parental anticoagulation education - *Follow up date to check INR post discharge At least 5 days overlap therapy as Inpatient No Meds if any: Prescribed or Continued at Discharge Note: Overlap Therapy is Warfarin and Anticoagulant Meds if any: NOT Prescribed or Continued at Discharge
[2018-03-23 14:59] VITALS: BP 154/78
[2018-03-23 22:10] VITALS: BP 138/84
[2018-03-24 06:26] VITALS: BP 126/68
--- NOTE | 2018-03-24 07:02 | PN- Housestaff ---
Raman VALLADARES,[facility] 03/24/18 0702: Subjective Follow-up For: SYNCOPE Subjective: Seen and examined at bedside. Pt is upset about Neurology not having seen him yet since admission. He does not endorse any complaints such as dizziness, chest pain, palpitation, focal neurological deificits. No aute telemetry events reported o/n. Review of Systems Constitutional: Reports: no symptoms. Objective Last 24 Hrs of Vital Signs/I&O Vital Signs Date Time Temp Pulse Resp B/P B/P Pulse O2 O2 Flow FiO2 Mean Ox Delivery Rate 03/24 1430 98.1 88 20 109/57 96 Room Air 03/24 0800 Room Air 03/24 0800 88 126/72 03/24 0800 88 126/72 03/24 0758 88 126/72 03/24 0626 98.3 94 20 126/68 96 Room Air 03/24 0000 Room Air 03/23 2210 97.9 86 20 138/84 97 Room Air 03/23 2200 86 138/84 03/23 2200 86 138/84 Intake & Output 03/24 1600 03/24 0800 03/24 0000 Intake Total 910 500 Output Total Balance 910 500 Intake, IV 10 Intake, Oral 900 500 Patient 165.618 kg Weight Weight Bed scale Measurement Method Physical Exam General Appearance: Alert, Oriented X3, Cooperative Other Physical Findings: Skin: No Rashes, right foot dorsum ulcer bandaged and clean Skin Temp/Moisture Exam: Warm/Dry Sepsis Skin Exam (color): Normal for Ethnicity Cardiovascular: Regular Rate, Normal S1, Normal S2, No Murmurs Lungs: Clear to Auscultation, Normal Air Movement Abdomen: Normal Bowel Sounds, Soft Neurological: Normal Speech Extremities: No Clubbing, No Cyanosis, Normal Pulses, right ankle chronically larger than left sp surgery of ankle years ago Assessment/Plan Assessment: 57-year-old male with a past medical history significant for diabetes, end- stage renal disease on hemodialysis Thursday, , Thursday, hemorrhagic CVA in 2016, morbid obesity, GERD, hypertension, that is brought in by ambulance from home for worsening recent history of "spacing out"/presyncope. Problem list - Multiple reported episodes of Syncopal and presyncope (?) -ESRD ON HD Thursday, , Thursday, 7kg over his goal EDW on admission -HTN and diabetes -RIGHT LOWER EXT WOUND with peripheral neuropathy at level of mid-calves Assesment and Plan Since admission to Telemetry, pt has not had a new reported syncope/presyncopal episode. Review of his Telemetry strips do not show any arrythmias since admission. He was never orthostatic positive and did not have hypoglycemia on presentation. Neurology saw him today and does not beileive that the patient experienced seizures, his EEG reading is pending. Pt is very eager for discharge and is adamnt he would like to go home today and does not want to await an echo which can be used to assess possible causes of syncope such as aortic stenosis, Hypertrophic obstructive cardiomyopathy and arrythmogenic right ventricular dysplasia. However the probablity of these findings are less likely given a recent echo in September 2016 did not show these abnormalities. However, cardiac etiology of his syncope is very possible given his hx of systolic dysfunction. An echo will be useful to asses his already depressed EF (last reading was 41%), which if worsened increases his risk for ventricular arrythmiasand maybe a candidate for an AICD. We will have patinet follow up for an outpatient Echo with Dr Vines. Anticipated discharge is today after dialysis session and reading of EEG. Problem List: 1. Syncope 2. ESRD (end stage renal disease) Pain Ratin Pain Location: NONE Pain Goal: Remain pain free Pain Plan: PER PATHWAY Tomorrow's Labs & Rationales: INESSA-DISCHARGE Julia Alexander 03/24/18 1313: Attending MD Review Statement Attending Statement Attending MD Statement: examined this patient, discuss w/resident/PA/AUTOMATIC BANDSAW TENDER, agreed w/resident/PA/AUTOMATIC BANDSAW TENDER, reviewed EMR data (avail), discussed with nursing, discussed with case mgmt Attending Assessment/Plan: d/w pt the care plan. appreciated neuro note and awaiting EEG results. will do orthostatic bp check and if ok and if EEG ok will dc pt home . casa pt the care plan
[2018-03-24 07:58] VITALS: BP 126/72
--- NOTE | 2018-03-24 11:35 | Cons- Neurology ---
General Information and HPI Consulting Request Date of Consult: 03/24/18 Requested By: Julia Alexander MD Reason for Consult: Dr Alexander Source of Information: patient, old records, EMR Exam Limitations: no limitations (unclear historian at times) History of Present Illness: 57-year-old right-handed man presented after what he considered to be a "blackout". The episode was unwitnessed. He was in his home, found his electric wheelchair had tipped over and he does not recall how it happened. He denied tongue biting or incontinence. He has a home health aide who was not present at the time of the spell. His history of spells was a bit unclear. He initially told me that he has been having them "ever since the stroke in 2016", but then later stated "this is the first time that this has ever happened". He has a history of diabetes and renal disease, on hemodialysis. He was on midodrine in the past. He has a history of hemorrhagic stroke from AVM bleed ([facility]) and subsequent surgery to embolize the AVM ([facility]). He denies any history of seizures. He has residual right hand pain and weakness. He takes gabapentin. He has residual gait difficulties He uses a rolling walker & a power wheelchair. He also fractured his right ankle in 2012 and on that basis had premorbid gait difficulties Allergies/Medications Allergies: Coded Allergies: metformin (Mild, DIARREHA 08/17/17) Sulfa (Sulfonamide Antibiotics) (UNKNOWN 08/18/17) PER DIALYSIS ORDER SHEET OF 08/18/17 (SJS) amphetamine (From ADDERALL) (UNKNOWN 08/18/17) PER DIALYSIS ORDER SHEET OF 08/18/17 (SJS) dextroamphetamine (From ADDERALL) (UNKNOWN 08/18/17) PER DIALYSIS ORDER SHEET OF 08/18/17 (SJS) glyburide (HYPOGLYCEMIA 08/17/17) shellfish derived (UNKNOWN 08/18/17) PER DIALYSIS ORDER SHEET OF 08/18/17 (SJS) SHELLFISH Home Med List: Aspirin (Aspirin*) 325 MG TABLET 1 TAB PO DAILY STROKE (Reported) Atorvastatin Calcium 20 MG TABLET 1 TAB PO DAILY CHOLESTEROL (Reported) Bacitracin 500 UNIT/GRAM OINT...G. 1 DEANN TOP BID SKIN TEAR apply to affected area(s) Calcium Acetate 667 MG CAPSULE 1 CAP PO WM RENAL (Reported) Carvedilol 6.25 MG TABLET 1 TAB PO BID heart rate (Reported) Duloxetine Hydrochloride (Cymbalta) 30 MG CAPSULE.DR 1 CAP PO DAILY PAIN ( Reported) Gabapentin 100 MG CAPSULE 3 CAP PO QHS NEUROPATHY Insulin-Lantus (Lantus) 100 UNIT/ML VIAL 47 UNITS SC QHS DIABETES Labetalol HCl 100 MG TABLET 1 TAB PO BID HTN (Reported) Lisinopril 20 MG TABLET 1 TAB PO DAILY HTN (Reported) Midodrine HCl 10 MG TABLET 1 TAB PO SEE ADMIN CRITERIA DIALYSIS (Reported) 1 TABLET BEFORE DIALYSIS SESSION Olanzapine (Zyprexa) 2.5 MG TABLET 1 TAB PO DAILY MOOD (Reported) Tamsulosin HCl (Flomax) 0.4 MG CAP.ER.24H 1 CAP PO DAILY HTN (Reported) Vit B Cmplx 3/FA/Vit C/Biotin (Nephro-Ashley Rx Tablet) 1 MG-60 MG-300 MCG TABLET 1 TAB PO DAILY DIALYSIS (Reported) Current Medications: Current Medications Sig/Chapis Start time Last Medication Dose Route Stop Time Status Admin Aspirin 81 MG DAILY 03/24 0900 AC 03/24 PO 0759 Aspirin 325 MG DAILY 03/23 0900 DC PO Atorvastatin Calcium 20 MG QPM 03/22 2100 AC 03/23 PO 2241 Carvedilol 6.25 MG BID 03/22 2100 AC 03/24 PO 0800 Duloxetine HCl 30 MG DAILY 03/23 0900 AC 03/24 PO 0800 Epoetin Jamie 1,000 UNIT TuThSa PRN 03/23 0800 AC IV Gabapentin 300 MG QPM 03/22 2100 AC 03/23 PO 2200 Heparin Sodium 5,000 UNIT Q8 03/22 1400 AC 03/23 (Porcine) SC 2230 Insulin Aspart 0 TIDAC 03/22 1700 AC 03/23 SC 1757 Insulin Detemir 47 UNITS QPM 03/22 2100 AC 03/23 SC 2230 Lisinopril 20 MG DAILY 03/23 0900 AC 03/24 PO 0800 Olanzapine 2.5 MG QPM 03/22 2100 AC 03/23 PO 2200 Paricalcitol 5 MCG TuThSa PRN 03/23 0815 AC IV Sevelamer Carbonate 1,600 MG WM 03/22 1700 AC 03/24 PO 0759 Tamsulosin HCl 0.4 MG QPM 03/22 2100 AC 03/23 PO 2200 Review of Systems Review of Systems: Otherwise noncontributory Past History Travel History Traveled to [place] past 21 day No Medical History Neurological: NONE (AVM), HEMORRHAGIC STROKE 2016 EENT: NONE Cardiovascular: hypertension Respiratory: pulmonary edema Gastrointestinal: NONE Hepatic: NONE Renal: esrd on hemodialysis Musculoskeletal: NONE Psychiatric: NONE Endocrine: diabetes Blood Disorders: NONE Cancer(s): NONE 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/Reproductive: NONE Surgical History Surgical History: none (embolization of cerebral AVM), NONE Family History Relations & Conditions If Any: MOTHER Heart failure Psychosocial History Services at Home: Home Health Aide, Nursing, Occupational Therapy, Physical Therapy Primary Language: [place] Citizen Smoking Status: Never Smoked ETOH Use: denies use Illicit Drug Use: denies illicit drug use Exam & Diagnostic Data Vital Signs and I&O Vital Signs Date Time Temp Pulse Resp B/P B/P Pulse O2 O2 Flow FiO2 Mean Ox Delivery Rate 03/24 0800 Room Air 03/24 0800 88 126/72 03/24 0800 88 126/72 03/24 0758 88 126/72 03/24 0626 98.3 94 20 126/68 96 Room Air 03/24 0000 Room Air 03/23 2210 97.9 86 20 138/84 97 Room Air 03/23 2200 86 138/84 03/23 2200 86 138/84 03/23 1459 98.1 93 20 154/78 95 Room Air 03/23 1252 89 140/77 03/23 1252 89 140/77 Intake & Output 03/24 1600 03/24 0800 03/24 0000 Intake Total 500 Output Total Balance 500 Intake, Oral 500 Physical Exam: PHYSICAL EXAMINATION: nl = normal NT or blank = not tested GENERAL Appearance: obese, awake, alert Head: nl Eyes: nl ENT: nl Neck: nl Carotids: nl Lungs: nl Heart: nl Extremities: R ankle fused. R foot wound covered w/ dressing NEUROLOGIC MENTAL STATUS Level of consciousness: nl Orientation: nl Fund of Knowledge: nl Speech / Language: nl NEUROLOGIC CRANIAL NERVES I: Olfaction: NT II: Optic nerves: nt Visual salazar: nl III: Pupils: nl Levator palpebrae: nl III, IV, : Ocular alignment: nl Extraocular motility: nl Pursuits/ saccades: nl V: Facial sensation: nl Masseter/Pterygoids: nl VII: Facial Motor: nl VIII: Hearing (finger rub): nl IX, X: Uvula and palate: nl XI: SCM, Upper trap.: nl XII: Tongue: nl MOTOR / NEUROMUSCULAR Bulk: reduced hand intrinsics, R hand > L Tone: nl Strength: hand intrinsics 4+ L, 3- R Rapid alternating movements: reduced R hand, unable R foot (fused ankle) Fine motor movements: reduced R hand Abnormal / involuntary movements: none CEREBELLAR / COORDINATION: intact SENSATION: Reduced to light touch and joint position in a stocking distribution DTR's hypoactive PLANTARS: flexor GAIT: not tested Last 48 Hours of Lab Results: Laboratory Tests 03/23 03/23 03/22 0748 0600 1445 Chemistry Sodium (137 - 145 mmol/L) 133 L Cancelled Potassium (3.5 - 5.1 mmol/L) 5.3 H Cancelled Chloride (98 - 107 mmol/L) 103 Cancelled Carbon Dioxide (22 - 30 mmol/L) 16 L Cancelled Anion Gap (5 - 16) 14 Cancelled BUN (9 - 20 mg/dL) 79 H Cancelled Creatinine (0.7 - 1.2 mg/dL) 10.8 *H Cancelled Estimated GFR (>60 ml/min) 5 L BUN/Creatinine Ratio (7 - 25 %) 7.2 Cancelled Calcium (8.4 - 10.2 mg/dL) 7.5 L Troponin I (<0.11 ng/ml) < 0.01 Hematology CBC w Diff NO MAN DIFF REQ Cancelled WBC (4.8 - 10.8 /CUMM) 8.2 Cancelled RBC (4.70 - 6.10 /CUMM) 3.41 L Cancelled Hgb (14.0 - 18.0 G/DL) 9.7 L Cancelled Hct (42 - 52 %) 30.1 L Cancelled MCV (80.0 - 94.0 FL) 88.3 Cancelled MCH (27.0 - 31.0 PG) 28.5 Cancelled MCHC (33.0 - 37.0 G/DL) 32.2 L Cancelled RDW (11.5 - 14.5 %) 18.2 H Cancelled Plt Count (130 - 400 /CUMM) 185 Cancelled MPV (7.4 - 10.4 FL) 8.6 Cancelled Gran % (42.2 - 75.2 %) 56.5 Lymphocytes % (20.5 - 51.1 %) 26.4 Monocytes % (1.7 - 9.3 %) 10.4 H Eosinophils % (0 - 5 %) 5.8 H Basophils % (0.0 - 2.0 %) 0.9 Absolute Granulocytes (1.4 - 6.5 /CUMM) 4.6 Absolute Lymphocytes (1.2 - 3.4 /CUMM) 2.2 Absolute Monocytes (0.10 - 0.60 /CUMM) 0.9 H Absolute Eosinophils (0.0 - 0.7 /CUMM) 0.5 Absolute Basophils (0.0 - 0.2 /CUMM) 0.1 Imaging/Other Studies: PATIENT: TAWANNA WAYNE JR PRESENT AGE: 57 PATIENT ACCOUNT NO: [id number] : 58 LOCATION: [facility] ORDERING PHYSICIAN: Puma Love MD SERVICE DATE: 03/22/18 EXAM TYPE: CAT - CT HEAD WO IV CONTRAST EXAMINATION: CT HEAD WITHOUT CONTRAST CLINICAL INFORMATION: Syncope. Headache. Rule out hemorrhagic stroke. COMPARISON: Report cerebral angiography 07/22/2016, CTA head and neck 07/10/2016. TECHNIQUE: Contiguous axial imaging was performed from the skull base to vertex without intravenous administration of contrast. DLP: 621 mGy-cm FINDINGS: High density embolic material is present in the vein of Abe and multiple adjacent by mouth feeding arteries corresponding to findings identified on the cerebral angiogram of 07/18/2016. Scattering artifact results in obscuration of adjacent transaxial structures. Making allowances for significant artifact, no gross intracranial hemorrhage or acute infarcts are noted. Moderate diffuse commensurate prominence of the ventricles and sulci is visualized. Bilateral thalamic less than/dystrophic type calcification/mineralization are again visualized. These findings may represent the chronic sequela of venous arterialization in the region of the thalami related to the adjacent dural AVF. Similar findings were present on the 07/10/2016 CT of the head and are grossly unchanged. The orbits and globes are partially included in the image [id number] and demonstrate mild bilaterally symmetric proptosis grossly unchanged in magnitude compared with 07/10/2016. Visualized paranasal sinuses, mastoid air cells and middle ear cavities are clear. IMPRESSION: 1. No acute abnormalities identified. No evidence of acute intracranial hemorrhage. 2. 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 Embolic material is present in the vein of Abe and within multiple carli feeding vessels. Scattering artifact related to the high density embolic material partially obscures visualization of adjacent structures. Making allowances for artifact, no gross intracranial hemorrhage is identified. DICTATED BY: Hussain Hightower MD DATE/TIME DICTATED:03/22/18726 GLAZE HANDLER:LONG DATE/TIME TRANSCRIBED:03/22/18726 CONFIDENTIAL, DO NOT COPY WITHOUT APPROPRIATE AUTHORIZATION. <Electronically signed in Other Vendor System> SIGNED BY: Hussain Hightower MD 03/22/1808 Assessment/Plan Assessment: Unwitnessed episode of alteration or loss of consciousness Possibilities include vasovagal syncope Orthostatic hypotension Less likely seizure Diabetic polyneuropathy Hx ICH-> AVM->embolization. Not currently followed by neurology or neurosurgery in the community Recommendations: EEG has been done, Dr Barroso will be reading today Monitor orthostatics Consult Acknowledgment - Thank you for your consult request.
[2018-03-24 13:02] LABS: ABSOLUTE BASOPHIL COUNT 0 /CUMM (0.0-0.2); ABSOLUTE EOSINOPHIL COUNT 0.4 /CUMM (0.0-0.7); ABSOLUTE GRANULOCYTE CT 5.3 /CUMM (1.4-6.5); ABSOLUTE LYMPH COUNT 1.9 /CUMM (1.2-3.4); ABSOLUTE MONOCYTE COUNT 0.8 /CUMM (0.10-0.60); BASOPHIL % 0.6 % (0.0-2.0); EOSINOPHIL % 4.7 % (0-5); GRANULOCYTE % 62.7 % (42.2-75.2); HEMATOCRIT 31.3 % (42-52); MEAN CORPUSCULAR HGB 28.5 PG (27.0-31.0); MEAN CORPUSCULAR VOLUME 89.1 FL (80.0-94.0); MEAN PLATELET VOLUME 8.2 FL (7.4-10.4); PLATELET COUNT 186 /CUMM (130-400); RBC DISTRIBUTION WIDTH 18.3 % (11.5-14.5); RED BLOOD CELL CT 3.51 /CUMM (4.70-6.10); WHITE BLOOD CELL COUNT 8.4 /CUMM (4.8-10.8)
--- NOTE | 2018-03-24 13:15 | PN- Nephrology ---
Assessment/Plan Nephrology Assessment: Volume overload. Currently undergoing extra treatment for UF. Suggestion: 3 hrs, 4 liter UF today. Subjective Subjective: Patient feeling well today, no neurologic events. Objective Vital Signs and I&Os Vital Signs Date Time Temp Pulse Resp B/P B/P Pulse O2 O2 Flow FiO2 Mean Ox Delivery Rate 03/24 0800 Room Air 03/24 0800 88 126/72 03/24 0800 88 126/72 03/24 0758 88 126/72 03/24 0626 98.3 94 20 126/68 96 Room Air 03/24 0000 Room Air 03/23 2210 97.9 86 20 138/84 97 Room Air 03/23 2200 86 138/84 03/23 2200 86 138/84 03/23 1459 98.1 93 20 154/78 95 Room Air Intake & Output 03/24 1600 03/24 0400 03/23 1600 03/23 0400 03/22 1600 03/22 0400 Intake Total 500 700 300 Output Total 5000 Balance 500 -4300 300 Intake, Oral 500 700 300 Output, 5000 Dialysate Patient 365 lb 378 lb 290 lb Weight Weight Bed scale Bed scale Reported by Patient Measurement Method Physical Exam: NAD VS as above Lungs: clear CV: no rub Abd: nontender Extrs: 1+ edema Neuro: A&O Current Medications: Current Medications Sig/Chapis Start time Last Medication Dose Route Stop Time Status Admin Aspirin 81 MG DAILY 03/24 09 AC 03/24 PO 0759 Aspirin 325 MG DAILY 03/23 0900 DC PO Atorvastatin Calcium 20 MG QPM 03/22 2100 AC 03/23 PO 2241 Carvedilol 6.25 MG BID 03/22 2100 AC 03/24 PO 0800 Duloxetine HCl 30 MG DAILY 03/23 09 AC 03/24 PO 0800 Epoetin Jaime 1,000 UNIT TuThSa PRN 03/23 08 AC IV Gabapentin 300 MG QPM 03/22 2100 AC 03/23 PO 2200 Heparin Sodium 5,000 UNIT Q8 03/22 1400 AC 03/23 (Porcine) SC 2230 Insulin Aspart 0 TIDAC 03/22 1700 AC 03/24 SC 1206 Insulin Detemir 47 UNITS QPM 03/22 2100 AC 03/23 SC 2230 Lisinopril 20 MG DAILY 03/23 0900 AC 03/24 PO 0800 Olanzapine 2.5 MG QPM 08/27 2100 AC 03/23 PO 2200 Paricalcitol 5 MCG TuThSa PRN 03/23 0815 AC IV Sevelamer Carbonate 1,600 MG WM 03/22 1700 AC 03/24 PO 1203 Tamsulosin HCl 0.4 MG QPM 03/22 2100 AC 03/23 PO 2200 Results Pertinent Lab Results: Laboratory Tests 03/24 03/23 1236 0748 Chemistry Sodium (137 - 145 mmol/L) Pending 133 L Potassium (3.5 - 5.1 mmol/L) Pending 5.3 H Chloride (98 - 107 mmol/L) Pending 103 Carbon Dioxide (22 - 30 mmol/L) Pending 16 L Anion Gap (5 - 16) Pending 14 BUN (9 - 20 mg/dL) Pending 79 H Creatinine (0.7 - 1.2 mg/dL) Pending 10.8 *H Estimated GFR (>60 ml/min) 5 L BUN/Creatinine Ratio (7 - 25 %) Pending 7.2 Calcium (8.4 - 10.2 mg/dL) Pending 7.5 L Phosphorus Pending Hematology CBC w Diff NO MAN DIFF REQ NO MAN DIFF REQ WBC (4.8 - 10.8 /CUMM) 8.4 8.2 RBC (4.70 - 6.10 /CUMM) 3.51 L 3.41 L Hgb (14.0 - 18.0 G/DL) 10.0 L 9.7 L Hct (42 - 52 %) 31.3 L 30.1 L MCV (80.0 - 94.0 FL) 89.1 88.3 MCH (27.0 - 31.0 PG) 28.5 28.5 MCHC (33.0 - 37.0 G/DL) 32.0 L 32.2 L RDW (11.5 - 14.5 %) 18.3 H 18.2 H Plt Count (130 - 400 /CUMM) 186 185 MPV (7.4 - 10.4 FL) 8.2 8.6 Gran % (42.2 - 75.2 %) 62.7 56.5 Lymphocytes % (20.5 - 51.1 %) 22.4 26.4 Monocytes % (1.7 - 9.3 %) 9.6 H 10.4 H Eosinophils % (0 - 5 %) 4.7 5.8 H Basophils % (0.0 - 2.0 %) 0.6 0.9 Absolute Granulocytes (1.4 - 6.5 /CUMM) 5.3 4.6 Absolute Lymphocytes (1.2 - 3.4 /CUMM) 1.9 2.2 Absolute Monocytes (0.10 - 0.60 /CUMM) 0.8 H 0.9 H Absolute Eosinophils (0.0 - 0.7 /CUMM) 0.4 0.5 Absolute Basophils (0.0 - 0.2 /CUMM) 0 0.1 03/23 03/22 03/22 0600 1445 0929 Chemistry Sodium Cancelled Potassium Cancelled Chloride Cancelled Carbon Dioxide Cancelled Anion Gap Cancelled BUN Cancelled Creatinine Cancelled BUN/Creatinine Ratio Cancelled Lactic Acid Cancelled Troponin I (<0.11 ng/ml) < 0.01 Hematology CBC w Diff Cancelled WBC Cancelled RBC Cancelled Hgb Cancelled Hct Cancelled MCV Cancelled MCH Cancelled MCHC Cancelled RDW Cancelled Plt Count Cancelled MPV Cancelled 03/22 0806 Chemistry Sodium (137 - 145 mmol/L) 136 L Potassium (3.5 - 5.1 mmol/L) 4.6 Chloride (98 - 107 mmol/L) 101 Carbon Dioxide (22 - 30 mmol/L) 22 Anion Gap (5 - 16) 13 BUN (9 - 20 mg/dL) 62 H Creatinine (0.7 - 1.2 mg/dL) 9.5 *H Estimated GFR (>60 ml/min) 6 L BUN/Creatinine Ratio (7 - 25 %) 6.5 L Glucose (65 - 99 mg/dL) 189 H Lactic Acid (0.7 - 2.1 mmol/L) 1.4 Calcium (8.4 - 10.2 mg/dL) 7.9 L Phosphorus (2.5 - 4.5 mg/dL) 5.2 H Magnesium (1.6 - 2.3 mg/dL) 1.7 Total Bilirubin (0.2 - 1.3 mg/dL) 0.5 Direct Bilirubin (< 0.4 mg/dL) 0.5 H AST (17 - 59 U/L) 16 L ALT (21 - 72 U/L) 22 Alkaline Phosphatase (< 127 U/L) 131 H Troponin I (<0.11 ng/ml) 0.02 Total Protein (6.3 - 8.2 g/dL) 7.3 Albumin (3.5 - 5.0 g/dL) 3.8 Amylase (30 - 110 U/L) 90 Lipase (23 - 300 U/L) 488 H Hematology CBC w Diff NO MAN DIFF REQ WBC (4.8 - 10.8 /CUMM) 9.5 RBC (4.70 - 6.10 /CUMM) 3.57 L Hgb (14.0 - 18.0 G/DL) 10.3 L Hct (42 - 52 %) 31.6 L MCV (80.0 - 94.0 FL) 88.6 MCH (27.0 - 31.0 PG) 28.9 MCHC (33.0 - 37.0 G/DL) 32.5 L RDW (11.5 - 14.5 %) 18.0 H Plt Count (130 - 400 /CUMM) 184 MPV (7.4 - 10.4 FL) 8.4 Gran % (42.2 - 75.2 %) 62.7 Lymphocytes % (20.5 - 51.1 %) 22.6 Monocytes % (1.7 - 9.3 %) 8.8 Eosinophils % (0 - 5 %) 5.2 H Basophils % (0.0 - 2.0 %) 0.7 Absolute Granulocytes (1.4 - 6.5 /CUMM) 6.0 Absolute Lymphocytes (1.2 - 3.4 /CUMM) 2.2 Absolute Monocytes (0.10 - 0.60 /CUMM) 0.8 H Absolute Eosinophils (0.0 - 0.7 /CUMM) 0.5 Absolute Basophils (0.0 - 0.2 /CUMM) 0.1
[2018-03-24] MEDS ORDERED: RENVELA800 M1 PO (13:20)
--- NOTE | 2018-03-24 13:54 | PN- Cardiology ---
Subjective Subjective: The patient is seen during dialysis. He reports that he is feeling well. No further syncopal episodes. No chest pain. No shortness of breath. No diaphoresis. No palpitations. No lightheadedness or dizziness. No nausea or vomiting. Objective Vital Signs and I&Os Vital Signs Date Time Temp Pulse Resp B/P B/P Pulse O2 O2 Flow FiO2 Mean Ox Delivery Rate 03/24 0800 Room Air 03/24 0800 88 126/72 03/24 08 88 126/72 03/24 0758 88 126/72 03/24 0626 98.3 94 20 126/68 96 Room Air 03/24 0000 Room Air 03/23 2210 97.9 86 20 138/84 97 Room Air 03/23 2200 86 138/84 03/23 2200 86 138/84 03/23 1459 98.1 93 20 154/78 95 Room Air Intake & Output 03/24 1600 03/24 0800 03/24 0000 03/23 1600 03/23 0800 03/23 0000 Intake Total 500 400 300 300 Output Total 5000 Balance 500 -4600 300 300 Intake, Oral 500 400 300 300 Output, 5000 Dialysate Patient 365 lb 378 lb Weight Weight Bed scale Bed scale Measurement Method Physical Exam: Gen: The patient is in no acute distress HEENT: Normal nose, ears, and oropharynx. Pupils equal bilaterally. Conjunctiva normal. Neck: Supple with no JVD, no masses, and no thyromegaly Lungs: Clear to auscultation with normal respiratory effort Heart: RRR, S1, S2, 2/6 systolic murmur. No peripheral edema, 2+ pulses in the lower extremities bilaterally Abdomen: Soft, nontender, no masses. No hepatomegaly. No splenomegaly Extremities: No clubbing or cyanosis. Normal muscle strength in the upper and lower extremities Skin: Normal skin turgor with no skin ulcers or lesions noted. Neuro: Cranial nerves intact. Sensation intact Psych: Alert and oriented x 3 with appropriate affect Current Medications: Current Medications Sig/Chapis Start time Last Medication Dose Route Stop Time Status Admin Aspirin 81 MG DAILY 03/24 09 AC 03/24 PO 0759 Aspirin 325 MG DAILY 03/23 09 DC PO Atorvastatin Calcium 20 MG QPM 03/22 2100 AC 03/23 PO 224 Carvedilol 6.25 MG BID 03/22 2100 AC 03/24 PO 0800 Duloxetine HCl 30 MG DAILY 03/23 0900 AC 03/24 PO 0800 Epoetin Jaime 1,000 UNIT TuThSa PRN 03/23 0800 AC IV Gabapentin 300 MG QPM 03/22 2100 AC 03/23 PO 2200 Heparin Sodium 5,000 UNIT Q8 03/22 1400 AC 03/23 (Porcine) SC 2230 Insulin Aspart 0 TIDAC 03/22 1700 AC 03/24 SC 1206 Insulin Detemir 47 UNITS QPM 03/22 2100 AC 03/23 SC 2230 Lisinopril 20 MG DAILY 03/23 0900 AC 03/24 PO 0800 Olanzapine 2.5 MG QPM 03/22 2100 AC 03/23 PO 2200 Paricalcitol 5 MCG TuThSa PRN 03/23 0815 AC IV Sevelamer Carbonate 1,600 MG WM 03/22 1700 AC 03/24 PO 1203 Tamsulosin HCl 0.4 MG QPM 03/22 2100 AC 03/23 PO 2200 Results Last 48 Hrs of Labs/Mics: Laboratory Tests 03/24/18 1236: Anion Gap 11, BUN Pending, Creatinine Pending, BUN/Creatinine Ratio 6.3 L, Calcium 8.0 L, Phosphorus 5.1 H, CBC w Diff NO MAN DIFF REQ, RBC 3.51 L, MCV 89.1, MCH 28.5, MCHC 32.0 L, RDW 18.3 H, MPV 8.2, Gran % 62.7, Lymphocytes % 22.4, Monocytes % 9.6 H, Eosinophils % 4.7, Basophils % 0.6, Absolute Granulocytes 5.3, Absolute Lymphocytes 1.9, Absolute Monocytes 0.8 H, Absolute Eosinophils 0.4, Absolute Basophils 0 03/23/18 0748: Anion Gap 14, Estimated GFR 5 L, BUN/Creatinine Ratio 7.2, Calcium 7.5 L, CBC w Diff NO MAN DIFF REQ, RBC 3.41 L, MCV 88.3, MCH 28.5, MCHC 32.2 L, RDW 18.2 H, MPV 8.6, Gran % 56.5, Lymphocytes % 26.4, Monocytes % 10.4 H, Eosinophils % 5.8 H, Basophils % 0.9, Absolute Granulocytes 4.6, Absolute Lymphocytes 2.2, Absolute Monocytes 0.9 H, Absolute Eosinophils 0.5, Absolute Basophils 0.1 03/23/18 0600: Sodium Cancelled, Potassium Cancelled, Chloride Cancelled, Carbon Dioxide Cancelled, Anion Gap Cancelled, BUN Cancelled, Creatinine Cancelled, BUN/ Creatinine Ratio Cancelled, CBC w Diff Cancelled, WBC Cancelled, RBC Cancelled, Hgb Cancelled, Hct Cancelled, MCV Cancelled, MCH Cancelled, MCHC Cancelled, RDW Cancelled, Plt Count Cancelled, MPV Cancelled 03/22/18 1445: Troponin I < 0.01 Recent Imaging Studies: Head CT: 1. No acute abnormalities identified. No evidence of acute intracranial hemorrhage. 2. 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 Embolic material is present in the vein of Abe and within multiple carli feeding vessels. Scattering artifact related to the high density embolic material partially obscures visualization of adjacent structures. Making allowances for artifact, no gross intracranial hemorrhage is identified. Assessment/Plan Assessment/Plan Assessment: 1. End-stage renal disease 2. Type 2 diabetes mellitus 3. 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 Recurrent syncope 5. Mild left ventricular systolic dysfunction Plan: * Check orthostatics * I agree with the plan for discharge today if stable * If echocardiogram is not completed in the hospital, it can be done as an outpatient * Follow up with me in the office in 1 week after discharge Continue telemetry? Yes
[2018-03-24 14:30] VITALS: BP 109/57
--- NOTE | 2018-03-24 14:35 | ELECTROENCEPHALOGRAM REPORT ---
Electroencephalogram Report Electroencephalogram Results Date of service: 03/22/18 Attending MD: Julia Alexander MD Sewer Repairer: Cj Enriquez EEG Number: [id number] Test Utilizes: 10-20 system, 21 lead 18 channel digital recording Pertinent Hx/Physical/Neuro Findings/Clin Diagnosis: Syncope, hx of CVA Inpatient Medications: Current Medications Sig/Chapis Start time Last Medication Dose Route Stop Time Status Admin Aspirin 81 MG DAILY 03/24 0900 AC 03/24 PO 0759 Aspirin 325 MG DAILY 03/23 0900 DC PO Atorvastatin Calcium 20 MG QPM 03/22 2100 AC 03/23 PO 2241 Carvedilol 6.25 MG BID 03/22 2100 AC 03/24 PO 0800 Duloxetine HCl 30 MG DAILY 03/23 0900 AC 03/24 PO 0800 Epoetin Jaime 1,000 UNIT TuThSa PRN 03/23 0800 AC IV Gabapentin 300 MG QPM 03/22 2100 AC 03/23 PO 2200 Heparin Sodium 5,000 UNIT Q8 03/22 1400 AC 03/23 (Porcine) SC 2230 Insulin Aspart 0 TIDAC 03/22 1700 AC 03/24 SC 1206 Insulin Detemir 47 UNITS QPM 03/22 2100 AC 03/23 SC 2230 Lisinopril 20 MG DAILY 03/23 0900 AC 03/24 PO 0800 Olanzapine 2.5 MG QPM 03/22 2100 AC 03/23 PO 2200 Paricalcitol 5 MCG TuThSa PRN 03/23 0815 AC IV Sevelamer Carbonate 1,600 MG WM 03/22 1700 AC 03/24 PO 1203 Tamsulosin HCl 0.4 MG QPM 03/22 2100 AC 03/23 PO 2200 Interpretation: The background is composed of well-formed low amplitude posterior 9 Hz alpha which attenuates on eye opening. Low voltage faster beta activity is intermixed and seen best in the frontal regions. There are no focal, lateralized or epileptiform abnormalities. Hyperventilation was deferred, but photic stimulation was performed and adds no additional information. Impression: Normal EEG in the states of wakefulness and drowsiness. No focal or epileptiform abnormalities identified.
--- NOTE | 2018-03-24 15:19 | Discharge Summary ---
Hospital Course Allergies: Coded Allergies: metformin (Mild, DIARREHA 08/17/17) Sulfa (Sulfonamide Antibiotics) (UNKNOWN 08/18/17) PER DIALYSIS ORDER SHEET OF 08/18/17 (SJS) amphetamine (From ADDERALL) (UNKNOWN 08/18/17) PER DIALYSIS ORDER SHEET OF 08/18/17 (SJS) dextroamphetamine (From ADDERALL) (UNKNOWN 08/18/17) PER DIALYSIS ORDER SHEET OF 08/18/17 (SJS) glyburide (HYPOGLYCEMIA 08/17/17) shellfish derived (UNKNOWN 08/18/17) PER DIALYSIS ORDER SHEET OF 08/18/17 (SJS) SHELLFISH Discharge Instructions Medications at Discharge Discharge Medications: Continue taking these medications: Duloxetine Hydrochloride (Cymbalta) 30 MG CAPSULE.DR 1 Capsule ORAL DAILY Comments: Last Taken: 03/24/18 Time: 8AM Tamsulosin HCl (Flomax) 0.4 MG CAP.ER.24H 1 Capsule ORAL DAILY Qty = 30 Comments: Last Taken: 03/23/18 Time: 10PM Calcium Acetate (Calcium Acetate) 667 MG CAPSULE 1 Capsule ORAL WITH MEALS Qty = 90 Comments: NOT GIVEN IN HOSPITAL Vit B Cmplx 3/FA/Vit C/Biotin (Nephro-Ashley Rx Tablet) 1 MG-60 MG-300 MCG TABLET 1 Tablet ORAL DAILY Qty = 30 Comments: NOT GIVEN IN HOSPITAL Aspirin (Aspirin*) 325 MG TABLET 1 Tablet ORAL DAILY Qty = 30 Comments: NOT GIVEN IN HOSPITAL Atorvastatin Calcium (Atorvastatin Calcium) 20 MG TABLET 1 Tablet ORAL DAILY Qty = 30 Comments: NOT GIVEN IN HOSPITAL Olanzapine (Zyprexa) 2.5 MG TABLET 1 Tablet ORAL DAILY Comments: Last Taken: 03/23/18 Time: 10PM Bacitracin (Bacitracin) 500 UNIT/GRAM OINT...G. 1 Application On the skin TWICE DAILY Qty = 15 Instructions: apply to affected area(s) Comments: NOT GIVEN IN HOSPITAL Carvedilol (Carvedilol) 6.25 MG TABLET 1 Tablet ORAL TWICE DAILY Qty = 180 Comments: Last Taken: 03/24/18 Time: 8AM Lisinopril (Lisinopril) 20 MG TABLET 1 Tablet ORAL DAILY Qty = 90 Comments: Last Taken: 03/24/18 Time: 8AM Sevelamer Carbonate (Renvela) 800 MG TABLET 2 Tablet ORAL THREE TIMES DAILY The following medications have been changed: Old: Gabapentin (Gabapentin) 100 MG CAPSULE 2 Capsule ORAL TAKE AT BEDTIME Qty = 60 New: Gabapentin (Gabapentin) 100 MG CAPSULE 3 Capsule ORAL TAKE AT BEDTIME Qty = 60 Comments: Last Taken: 03/24/18 Time: 8AM Old: Insulin-Lantus (Lantus) 100 UNIT/ML VIAL 42 Units SC TAKE AT BEDTIME Qty = 1 New: Insulin-Lantus (Lantus) 100 UNIT/ML VIAL 47 Units SC TAKE AT BEDTIME Qty = 1 Comments: Last Taken: 03/23/18 Time: 10PM PT GIVEN LEVEMIR 47 UNITS
== END 2018-03-24 17:20 | disposition home health service (06) | DRG 312 ==
LOC: ERH 06:10 → ERHI 09:56 → 1NO 09:56 → ENRESERV 17:48 → ENTRNSPT 18:40 → EDTRNSPT 18:56 → EDTRNSPTSTS 18:57 → 1NO 19:01 → CMPTRNSPT 19:16 → ENPENDDIS 03-24 13:22 → 1NO 03-24 17:20
PROVIDERS: Internal Medicine Nephrology; Pediatrics
PROC: 5A1D70Z Performance of Urinary Filtration, Intermittent, Less than 6 Hours Per Day (ICD-10-PCS; principal; 2018-03-23)
DX: R55 Syncope and collapse (principal); N18.6 End stage renal disease; Z68.41 Body mass index [BMI] 40.0-44.9, adult; E66.01 Morbid (severe) obesity due to excess calories; Z99.2 Dependence on renal dialysis; K21.9 Gastro-esophageal reflux disease without esophagitis; F31.9 Bipolar disorder, unspecified; E11.42 Type 2 diabetes mellitus with diabetic polyneuropathy; E11.22 Type 2 diabetes mellitus with diabetic chronic kidney disease; I10 Essential (primary) hypertension; I87.2 Venous insufficiency (chronic) (peripheral); Z88.2 Allergy status to sulfonamides; Z86.73 Personal history of transient ischemic attack (TIA), and cerebral infarction without residual deficits; Z79.4 Long term (current) use of insulin; Z85.72 Personal history of non-Hodgkin lymphomas; Z88.8 Allergy status to other drugs, medicaments and biological substances; Z91.013 Allergy to seafood; Z87.81 Personal history of (healed) traumatic fracture
CPT/HCPCS: 1NP; 71045; 82436; 93005; 93010; 95816; J0885; J1644; J2501; J3490